=== PATIENT | female | born 1955 | race Caucasian/White ===

== ENCOUNTER → 2016-12-10 | Outpatient (CLI) | payer BC ==
[~2016-12-10] MED LIST: ASPI81TA21 PO; CALCTAB11 PO; CHOL20005 PO; LEVO75TA PO; METF500T5 PO; MULT-506 PO; SERT-234 PO; SIMV40TA2 PO
--- NOTE | 2016-12-10 14:34 | MAMMOGRAPHY REPORT ---
BILATERAL DIGITAL SCREENING MAMMOGRAM WITH CAD: 12/10/2016 CLINICAL HISTORY: Routine screening. Patient has no complaints. TECHNIQUE: Current study was also evaluated with a Computer Aided Detection (CAD) system. Bilatera l CC and MLO views were obtained. COMPARISON: Comparison is made to exams dated: 12/07/2015 mammogram, 12/06/2014 mammogram, 12/01/2012 mammogram, 12/01/2011 mammogram, 11/27/2010 mammogram, and 02/19/2010 mammogram - [facility]. BREAST COMPOSITION: The tissue of both breasts is extremely dense, which lowers the sensitivity of mammography. FINDINGS: No suspicious masses, calcifications, or areas of architectural distortion are noted in e ither breast. There has been no significant interval change compared to prior exams. Scattered bilat eral benign-appearing calcifications are not significantly changed. IMPRESSION: ACR BI-RADS CATEGORY 2: BENIGN There is no mammographic evidence of malignancy. A 1 year screening mammogram is recommended. The p atient will receive written notification of the results. Approximately 10% of breast cancers are not detected with mammography. A negative mammographic repor t should not delay biopsy if a clinically suggestive mass is present. Rica Villarreal M.D. /:12/10/2016 08:51:07 Supervisor Cartography: Orin Candelaria, [facility] letter sent: Normal 1/2 BI-RADS Code: ACR BI-RADS Category 2: Benign
== END | disposition home or self-care (01) ==
LOC: C.MAMM 08:28
PROVIDERS: ATTEND Obstetrics & Gynecology
DX: Z12.31 Encounter for screening mammogram for malignant neoplasm of breast (principal)

== ENCOUNTER → 2016-12-12 | Outpatient (CLI) | payer BC ==
[2016-12-12 13:48] LABS: ESTIMATED AVERAGE GLUCOSE 160 mg/dl; HA1C FLAG Normal (Normal)
[2016-12-12 13:54] LABS: ALT/SGPT 70 U/L (12-78); AST/SGOT 59 U/L (15-37); BLOOD UREA NITROGEN 18 mg/dl (7-18); BUN/CREATININE RATIO 18.6 (10-20); CARBON DIOXIDE 29 mmol/L (21-32); CHLORIDE 103 mmol/L (98-107); CHOLESTEROL 103 mg/dl (0-200); CREATININE 0.94 mg/dl (0.60-1.20); GLUCOSE 130 mg/dl (70-99); SODIUM 140 mmol/L (136-145)
[2016-12-12 14:00] LABS: CALCIUM 9.8 mg/dl (8.5-10.1)
[2016-12-12 14:04] LABS: ALB/GLOB RATIO 1.1 (0.9-2); ALKALINE PHOSPHATASE 89 U/L (45-117); CHOLESTEROL/HDL RATIO 2.4; HDL CHOLESTEROL 43 mg/dl; LDL CHOLESTEROL CALCULATED 39 mg/dl; TRIGLYCERIDES 107 mg/dl (0-150); VERY LOW DENSITY LIPOPROT CALC 21 mg/dl
== END | disposition home or self-care (01) ==
LOC: C.LAB1850 12:28
PROVIDERS: ATTEND Family Medicine
DX: Z11.59 Encounter for screening for other viral diseases (principal); E03.9 Hypothyroidism, unspecified; E11.9 Type 2 diabetes mellitus without complications; E78.5 Hyperlipidemia, unspecified

== ENCOUNTER → 2016-12-22 | Outpatient (CLI) | payer BC ==
[~2016-12-22] VITALS: Ht 175.3 cm; Wt 94.9 kg
[2016-12-22 13:45] VITALS: BP 119/74; PULSE 76; Ht 175.3 cm; Wt 94.9 kg
== END | disposition home or self-care (01) ==
LOC: C.NEUR 13:28
PROVIDERS: ATTEND Physician Assistant
DX: G47.30 Sleep apnea, unspecified (principal)

== ENCOUNTER → 2017-09-10 | Outpatient (CLI) | payer OTHER ==
[~2017-09-10] VITALS: Ht 175.3 cm; Wt 93.7 kg
[2017-09-10 15:49] VITALS: BP 121/61; PULSE 67; Ht 175.3 cm; Wt 93.7 kg
== END | disposition home or self-care (01) ==
LOC: C.NEUR 14:00
PROVIDERS: ATTEND Physician Assistant
DX: G47.30 Sleep apnea, unspecified (principal)

== ENCOUNTER → 2017-09-29 | Outpatient (CLI) | payer OTHER | END | disposition home or self-care (01) | LOC: C.LABSPEC 17:38 | PROVIDERS: ATTEND Family Medicine | DX: R80.9 Proteinuria, unspecified (principal) ==

== ENCOUNTER 2017-10-05 18:45 | Emergency (ER) | payer OTHER ==
[~2017-10-05] VITALS: Ht 175.3 cm; Wt 94.4 kg
[2017-10-05 19:08] VITALS: Ht 175.3 cm; Wt 94.4 kg
--- NOTE | 2017-10-05 22:10 | EMERGENCY ROOM VISIT NOTE ---
History First contact with patient: 21:46 Chief Complaint: FLANK PAIN Stated Complaint: LOWER BACK PAIN, POSSIBLE KIDNEY STONE History of Present Illness The patient is a 62 year old female who presents to the Emergency Room with complaints of right flank pain that has been ongoing since Thursday in the setting of being diagnosed and treated for a UTI earlier last week. Patient reports that she had oxylate crystals in her urine and was told to go to the emergency department should she develop any back or flank pain. She called her doctor's office today to inform them of her ongoing back pain and was again told to go to the emergency Department to rule out a kidney stone. She denies any fevers chills, nausea, vomiting, blood in urine, headaches, dizziness, chest pain shortness of breath. Source of History: patient Position: other (right flank) Symptom Intensity: minimal Quality: ache Timing: constant Modifying Factors (Worsening): movement Modifying Factors (Relieving): other (none) Associated Symptoms: + urinary symptoms Review of Systems See HPI for pertinent positives and negatives. A total of ten systems were reviewed and were otherwise negative. Past Medical/Surgical History Hysterectomy Social History Smoking Status: Never Smoker Current/Historical Medications Scheduled Aspirin Enteric Coated (Ecotrin Or Generic), 81 MG PO DAILY Calcium Carbonate-Cholecalcife (Os-Gunner 500+D), 2 TAB PO DAILY Cholecalciferol (Vitamin D3), 2,000 INTER.UNIT PO BID Levothyroxine Sodium (Synthroid), 75 MCG PO DAILY Metformin Hcl Er (Glucophage Er), 1,000 MG PO BID Multivitamin (Multivitamin), 1 TAB PO DAILY Sertraline (Zoloft), 200 MG PO DAILY Simvastatin (Zocor), 40 MG PO QPM Physical Exam Vital Signs Date Time Temp Pulse Resp B/P (MAP) Pulse Ox O2 Delivery O2 Flow Rate FiO2 10/06/17 01:10 36.4 63 20 126/66 93 10/06/17 00:02 68 20 131/72 94 Room Air 10/05/17 19:08 36.4 83 18 129/76 95 Room Air Physical Exam GENERAL: Awake, alert, well-appearing, in no distress HENT: Normocephalic, atraumatic. Oropharynx unremarkable. EYES: Normal conjunctiva. Sclera non-icteric. NECK: Supple. No nuchal rigidity. FROM. No JVD. RESPIRATORY: Clear to auscultation. CARDIAC: Regular rate, normal rhythm. Extremities warm and well perfused. Pulses equal. ABDOMEN: Soft, non-distended. No tenderness to palpation. No rebound or guarding. No masses. RECTAL: Deferred. MUSCULOSKELETAL: Chest examination reveals no tenderness. The back is symmetrical on inspection without obvious abnormality. Minimal right CVA discomfort. LOWER EXTREMITIES: Calves are equal size bilaterally and non-tender. No edema. No discoloration. NEURO: Normal sensorium. No sensory or motor deficits noted. SKIN: No rash or jaundice noted. Medical Decision & Procedures ER Provider Diagnostic Interpretation: Preliminary Findings Only See Final Report For Complete Findings CT ABDOMEN & PELVIS With Contrast: No urolithiasis or hydronephrosis. Hepatomegaly with marked parenchymal steatosis. Narinder Unremarkable appendix. No SBO. Gastric antral wall thickening, lack of distention versus mild gastritis. No free air. Hysterectomy. Tiny fatty umbilical hernia. Radiologist: Issa Snyder M.D. Laboratory Results 10/05/17 22:20 Red Blood Count 4.19, Mean Corpuscular Volume 91.6, Mean Corpuscular Hemoglobin 31.0, Mean Corpuscular Hemoglobin Concent 33.9, Mean Platelet Volume 10.3, Neutrophils (%) (Auto) 60.4, Lymphocytes (%) (Auto) 31.3, Monocytes (%) (Auto) 6.7, Eosinophils (%) (Auto) 0.7, Basophils (%) (Auto) 0.5, Neutrophils # (Auto) 5.51, Lymphocytes # (Auto) 2.86, Monocytes # (Auto) 0.61, Eosinophils # (Auto) 0.06, Basophils # (Auto) 0.05 10/05/17 23:58 Test 10/05/17 20:25 10/05/17 22:20 10/05/17 22:25 10/05/17 22:31 Urine Color YELLOW Urine Appearance CLOUDY (CLEAR) Urine pH 5.0 (4.5-7.5) Urine Specific [place] 1.017 (1.000-1.030) Urine Protein NEG (NEG) Urine Glucose (UA) NEG (NEG) Urine Ketones NEG (NEG) Urine Occult Blood NEG (NEG) Urine Nitrite NEG (NEG) Urine Bilirubin NEG (NEG) Urine Urobilinogen NEG (NEG) Urine Leukocyte Esterase LARGE (NEG) Urine WBC (Auto) >30 /hpf (0-5) Urine RBC (Auto) 0-4 /hpf (0-4) Urine Hyaline Casts (Auto) 1-5 /lpf (0-5) Urine Epithelial Cells (Auto) >30 /lpf (0-5) Urine Bacteria (Auto) NEG (NEG) Urine Renal Epithelial Cells 10-20 /lpf (0-5) White Blood Count 9.13 K/uL (4.8-10.8) Red Blood Count 4.19 M/uL (4.2-5.4) Hemoglobin 13.0 g/dL (12.0-16.0) Hematocrit 38.4 % (37-47) Mean Corpuscular Volume 91.6 fL (80-100) Mean Corpuscular Hemoglobin 31.0 pg (25-34) Mean Corpuscular Hemoglobin Concent 33.9 g/dl (32-36) Platelet Count 235 K/uL (130-400) Mean Platelet Volume 10.3 fL (7.4-10.4) Neutrophils (%) (Auto) 60.4 % Lymphocytes (%) (Auto) 31.3 % Monocytes (%) (Auto) 6.7 % Eosinophils (%) (Auto) 0.7 % Basophils (%) (Auto) 0.5 % Neutrophils # (Auto) 5.51 K/uL (1.4-6.5) Lymphocytes # (Auto) 2.86 K/uL (1.2-3.4) Monocytes # (Auto) 0.61 K/uL (0.11-0.59) Eosinophils # (Auto) 0.06 K/uL (0-0.5) Basophils # (Auto) 0.05 K/uL (0-0.2) RDW Standard Deviation 43.8 fL (36.4-46.3) RDW Coefficient of Variation 13.2 % (11.5-14.5) Immature Granulocyte % (Auto) 0.4 % Immature Granulocyte # (Auto) 0.04 K/uL (0.00-0.02) Bedside Blood Gas pH (LAB) 7.42 (7.35-7.45) Bedside Blood Gas pCO2 (LAB) 46 mmHg (35-46) Bedside Blood Gas pO2 (LAB) 44 mmHg (80-95) Bedside Blood Gas HCO3 (LAB) 30 meq/L (19-24) Bedside Blood Gas Total CO2 31 mEq/l (24-31) Bedside Blood Gas Base Excess (LAB) 5.0 meq/L (-9-1.8) Bedside Blood Gas O2 Saturation 80.0 % (90-95) Bedside Hemoglobin 13.3 g/dl (12.0-16.0) Bedside Hematocrit 39 % (37-47) Bedside Sodium 139 mEq/L (135-144) Bedside Potassium 4.9 mEq/L (3.3-5.0) Bedside Chloride 100 mEq/L (101-112) Bedside Total CO2 30 mEq/l (24-31) Bedside Blood Urea Nitrogen 26 mg/dl (7-18) Bedside Creatinine 1.1 mg/dl (0.6-1.3) Bedside Glucose (other) 109 mg/dl (70-99) Bedside Ionized Calcium (Zonia) 1.17 mmol/l (1.12-1.32) Test 10/05/17 23:58 Anion Gap 10.0 mmol/L (3-11) Est Creatinine Clear Calc Drug Dose 65.8 ml/min Estimated GFR () 64.0 Estimated GFR (Non- 55.2 BUN/Creatinine Ratio 17.2 (10-20) Calcium Level 8.6 mg/dl (8.5-10.1) Total Bilirubin 0.4 mg/dl (0.2-1) Direct Bilirubin 0.1 mg/dl (0-0.2) Aspartate Amino Transf (AST/SGOT) 36 U/L (15-37) Alanine Aminotransferase (ALT/SGPT) 43 U/L (12-78) Alkaline Phosphatase 72 U/L (45-117) Total Protein 6.4 gm/dl (6.4-8.2) Albumin 3.1 gm/dl (3.4-5.0) Lipase 167 U/L (73-393) ED Course 2145: I evaluated the patient at the bedside. Medical Decision I reviewed the patient's past medical history, medications, and the nursing notes as described above. Differential diagnosis includes: UTI, pyelonephritis, renal stone, diverticulitis, appendicitis, colitis, biliary etiology, among others. The patient is a 62-year-old woman who presents emergency Department with right flank pain that his been ongoing since Thursday in the setting of having a UTI diagnosed early in the week currently completing antibiotic therapy per hpi. Arrival the patient is no acute distress, relatively well-appearing, afebrile stable vital signs. She has minimal right CVA discomfort but no discrete tenderness. Abdomen is soft with no peritoneal signs. Labs unremarkable including wbc wnl. CT STATRAD read negative for hydro or ureteral stone. No other acute findings. UA dirty and patient reports resolution of her dysuria. Patient still with 1 more day of 7 day course of Cipro 500 BID that would cover for pyelonephritis. UA with renal epithileal cells likely related to patient's recent cystitis/pyelo. Review of outpatient urine cx demonstrates e-coli > 100K sensitive to Cipro. Thus, no need for extension of abx at this time. Findings and plan for follow-up reviewed with patient. Patient agreeable and d/c'd per discharge instructions. Impression Primary Impression: Right flank pain Departure Information Dispostion Home / Self-Care Referrals Hannah Sal MD (PCP) Patient Instructions ED Flank Pain Uncertain Cause, ED Muscle Aching, My [facility] Additional Instructions Please follow up with your primary care physician in the next 1-3 days for re- evaluation. Your symptoms are most likely due to a muscle strain or possibly residual from your recent urinary tract infection. Review of your culture results shows that your were treated with appropriate antimicrobial coverage with Ciprofloxacin. If your urine culture today grows a different bacteria not covered by your current antibiotic you will receive a phone call. Otherwise, your exam, lab results, and CT scan did not show signs of an emergent condition at this time. Acetaminophen or ibuprofen for pain and fevers as needed. Continue your Ciprofloxacin as directed. Drink plenty of fluids to ensure hydration. Return to the emergency department for worsening symptoms as described in the accompanying instructions.
[2017-10-05] MEDS ORDERED: OPTIRAY 320 IV PRN (22:15)
[2017-10-05 22:38] LABS: ISTAT POTASSIUM 4.8 mEq/L (3.3-5.0); ISTAT SODIUM 138 mEq/L (135-144)
[2017-10-05 22:39] LABS: BASO % 0.5 %; BASO ABS # 0.05 K/uL (0-0.2); EOS % 0.7 %; EOS ABS # 0.06 K/uL (0-0.5); HEMATOCRIT 38.4 % (37-47); IG# 0.04 K/uL (0.00-0.02); LYMPH % 31.3 %; LYMPH ABS # 2.86 K/uL (1.2-3.4); MEAN CELL VOLUME 91.6 fL (80-100); MEAN CORPUSCULAR HGB CONC 33.9 g/dl (32-36); MEAN PLATELET VOLUME 10.3 fL (7.4-10.4); MONO % 6.7 %; MONO ABS # 0.61 K/uL (0.11-0.59); NEUT % 60.4 %; NEUT ABS # 5.51 K/uL (1.4-6.5); PLATELET COUNT 235 K/uL (130-400); RED CELL DISTRIBUTION WIDTH CV 13.2 % (11.5-14.5); RED CELL DISTRIBUTION WIDTH SD 43.8 fL (36.4-46.3); WHITE BLOOD COUNT 9.13 K/uL (4.8-10.8)
[2017-10-05 22:58] LABS: ISTAT CREATININE 1.1 mg/dl (0.6-1.3); ISTAT IONIZED CALCIUM 1.17 mmol/l (1.12-1.32); ISTAT POTASSIUM 4.9 mEq/L (3.3-5.0)
[2017-10-06 00:28] LABS: ALBUMIN 3.1 gm/dl (3.4-5.0); CALCIUM 8.6 mg/dl (8.5-10.1); CREATININE 1.07 mg/dl (0.60-1.20); POTASSIUM 3.9 mmol/L (3.5-5.1)
[2017-10-06 00:31] LABS: TOTAL PROTEIN 6.4 gm/dl (6.4-8.2)
[2017-10-06 01:10] VITALS: BP 126/66; PULSE 63; TEMP 36.4; O2SAT 93
--- NOTE | 2017-10-06 11:20 | DIAGNOSTIC IMAGING REPORT ---
CT ABD/PELVIS IV CONTRAST ONLY CLINICAL HISTORY: right flank pain LOW BACK PAIN COMPARISON STUDY: None. TECHNIQUE: Following the IV administration of 92 mL of Optiray-320, CT scan of the abdomen and pelvis was performed from the lung bases to the proximal femurs. Images are reviewed in the axial, sagittal, and coronal planes. IV contrast was administered without complication. A dose lowering technique was utilized adhering to the principles of ALARA. CT DOSE: 1042.27 mGy.cm FINDINGS: Lower chest: The heart is normal in size and configuration, without pericardial effusion. The lung bases and pleural spaces are clear. Liver: There is hepatic steatosis. No focal hepatic masses are visualized. Gallbladder: Unremarkable. Spleen: The spleen is mildly enlarged measuring 13.5 cm Pancreas: Unremarkable. Adrenal glands: Unremarkable. Kidneys: There is symmetric renal cortical enhancement. The kidneys are normal in size without hydronephrosis. No calculi are visualized. Bowel: There are no transition zones indicate bowel obstruction. There is no evidence of acute diverticulitis. There is no evidence of acute appendicitis. Peritoneum: There is no intraperitoneal free air or abdominal ascites. Vasculature: The abdominal aorta is normal in course and caliber. Adenopathy: None. Pelvic viscera: The uterus is surgically absent. Skeletal structures: No destructive osseous lesions are seen. IMPRESSION: 1. Hepatic steatosis. Mild hepatomegaly 2. No evidence of bowel obstruction. No evidence of free air 3. No evidence of acute appendicitis. No evidence of acute diverticulitis. Electronically signed by: Ryan Crawley M.D. 10/06/2017 6:57 AM Dictated Date/Time: 10/06/2017 6:54 AM
== END 2017-10-06 01:11 | disposition home or self-care (01) ==
LOC: C.EDB 18:47
DX: R10.84 Generalized abdominal pain (principal); Z79.82 Long term (current) use of aspirin

== ENCOUNTER → 2017-12-07 | Outpatient (CLI) | payer OTHER ==
[~2017-12-07] MED LIST changes: +ASPI-319 PO; -ASPI81TA21 PO
== END ==
LOC: C.LABSPEC 10:36
PROVIDERS: ATTEND Family Medicine
DX: R35.0 Frequency of micturition (principal)

== ENCOUNTER 2019-10-28 23:45 | Observation (INO) ==
[2019-10-29] MEDS ORDERED: ONDANSETRON INJ 2 MG/ML 2 ML VIAL IV STA (00:03)
[2019-10-29 00:25] LABS: Basophils # (auto) 0.03 K/uL (0-0.2); Basophils % (auto) 0.3 %; Eosinophils # (auto) 0.16 K/uL (0-0.5); Eosinophils % (auto) 1.8 %; Hematocrit (blood only) 40.2 % (37-47); Hemoglobin 13.1 g/dL (12.0-16.0); Immature Granulocytes # (auto) 0.03 K/uL (0.00-0.02); Immature Granulocytes % (auto) 0.3 %; Lymphocytes # (auto) 2.52 K/uL (1.2-3.4); Lymphocytes % (auto) 27.8 %; Mean Corpuscular Hemoglobin 30.9 pg (25-34); Mean Corpuscular Hgb Conc 32.6 g/dL (32-36); Mean Corpuscular Volume 94.8 fL (80-100); Mean Platelet Volume 10.1 fL (7.4-10.4); Monocytes # (auto) 0.49 K/uL (0.11-0.59); Monocytes % (auto) 5.4 %; Neutrophils # (auto) 5.85 K/uL (1.4-6.5); Neutrophils % (auto) 64.4 %; Platelet Count 256 K/uL (130-400); RDW Coefficient of Variation 13.3 % (11.5-14.5); RDW Standard Deviation 45.6 fL (36.4-46.3); Red Blood Count 4.24 M/uL (4.2-5.4); White Blood Count 9.08 K/uL (4.8-10.8)
[2019-10-29 00:26] LABS: Appearance Urine Turbid (Clear); Bacteria Urine Automated Negative (Negative); Bilirubin Urine Negative (Negative); Blood Urine Negative (Negative); Color Urine Yellow; Glucose Urine UA Negative (Negative); Ketones Urine Negative (Negative); Leukocyte Esterase Urine Trace (Negative); Nitrite Urine Negative (Negative); Protein Urine Negative (Negative); RBC Urine Automated 0-4 /hpf (0-4); Urobilinogen Urine Negative (Negative); pH Urine 8.5 (4.5-7.5)
[2019-10-29 00:43] LABS: Alanine Aminotransferase 94 U/L (12-78); Aspartate Aminotransferase 231 U/L (15-37); BUN Creatinine Ratio 21.1 (10-20); Blood Urea Nitrogen 22 mg/dl (7-18); Calcium 9.5 mg/dl (8.5-10.1); Carbon Dioxide 31 mmol/L (21-32); Chloride 103 mmol/L (98-107); Creatinine Clr Calc Pharmacy 64.7 ml/min; Est GFR (African American) 64.5; Est GFR (Non-African American) 55.7; Glucose 129 mg/dl (70-99); Lipase 188 U/L (73-393); Sodium 140 mmol/L (136-145)
[2019-10-29 00:48] LABS: Albumin Globulin Ratio 1.1 (0.9-2); Alkaline Phosphatase 143 U/L (45-117); Bilirubin,Total 0.5 mg/dl (0.2-1); Globulin 3.8 gm/dl (2.5-4.0); Total Protein 7.8 gm/dl (6.4-8.2); Troponin I < 0.015 ng/ml (0-0.045)
[2019-10-29] MEDS ORDERED: SODIUM CHLORIDE 0.9% 1000ML 1,000 ML IV ONE (01:01)
--- NOTE | 2019-10-29 01:41 | Emergency Department Note ---
ED Visit Note NAME: ESTER CADE AGE: 64 SEX: F ARRIVES VIA: Walk-In INFORMANT: [Patient] ED PROVIDER(S): [Monae Fiedl DO] CHIEF COMPLAINT: [Right upper quadrant abdominal pain] IMPRESSION: [Cholelithiasis Right upper quadrant abdominal pain] PLAN: Disposition: [Admitted to the [facility]ist service with consultation to surgery] Condition: [Good] MEDICAL DECISION MAKING: This is a 64-year-old female patient who presents to the emergency department complaining of right upper quadrant abdominal pain. Patient has a normal- appearing EKG and negative troponin. She does have an elevated alkaline phosphatase and AST/ALT. She did have pizza for dinner tonight. She does have a sister with history of cholecystitis. The patient states that while undergoing the right upper quadrant ultrasound, she had severe pain during the testing. Patient has a dilated common bile duct with sludge and stones within the gallbladder. I discussed the case with Dr. Yu and he recommended admission to the hospitalist service and he will be consulted. Triage Nursing notes reviewed and agree them. [Additional history obtained from] none Differential diagnosis: Pancreatitis, cholecystitis, ulcerative disease, cardiac ischemia ER treatment provided: IV Zofran, IV normal saline, IV Dilaudid, IV Levaquin Diagnostics interpreted by me: ECG: Normal sinus rhythm at a rate of 66; no cardiac ischemia no ST segment elevation and no ectopy Cardiac Monitoring: Normal sinus rhythm at a rate of 70 Laboratory studies: [See below] Imaging studies: Chest x-ray: No acute pulmonary infiltrates or opacities as interpreted by me Consultation(s): Dr. Yu-surgery Dr. Harmon[facility] service HPI: This is a 64-year-old female patient who presents to the emergency department with a sudden onset of right upper quadrant abdominal pain at 10 PM this evening. The patient had eaten pizza and salad for dinner. There was some associated nausea. The patient states that the pain did seem to subside on its own for a short period of time but then came back as a pressure and radiated to the epigastrium. ROS: See above HPI for pertinent positives & negatives. A total of [10] systems reviewed and were otherwise negative. PAST MEDICAL HISTORY:[See Below] PAST SURGICAL HISTORY:[See Below] FAMILY HISTORY:[See Below] SOCIAL HISTORY:[See Below] HOME MEDICATIONS:[See Below] ALLERGIES:[See Below] VITALS:[See Below] PHYSICAL EXAMINATION: HEENT: Head - normocephalic and atraumatic Pupils are equal, round, and reactive to light. Extraocular eye muscles are intact, and sclera are anicteric. Nose - moist nasal mucosa without discharge. Mouth - moist buccal mucosa. Oropharynx is nonerythematous and there is no tonsillar exudate or edema noted. Neck: Supple; no cervical lymphadenopathy or nuchal rigidity Heart: Regular rate and rhythm. There is a normal S1 and S2 with no murmurs, clicks, or gallops appreciated. Lungs: Clear to auscultation bilaterally with no wheezes, rales, or rhonchi. Abdomen: Soft, moderate tenderness to palpation in the right upper quadrant nondistended, with good bowel sounds. There are no palpable pulsatile masses or hepatosplenomegaly. There is no guarding, rigidity, or rebound noted. Extremities: No evidence of cyanosis, clubbing, or edema. There are easily palp able peripheral pulses. Skin: warm and dry with good turgor and no rashes. ED COURSE: 1205: The patient was evaluated in room C10. A complete history and physical was performed. An IV lock was initiated and labs drawn as above. An order was placed for continuous cardiac monitoring. The patient remained in a normal sinus rhythm at a rate of 70. Patient declined wanting anything for pain initially. She was given 4 mg of IV Zofran. The patient will go for ultrasound of the gallbladder 0140: I did update the patient's on the laboratory studies while she was in ultrasound I evaluated the patient when she returned from ultrasound and she stated that the actual ultrasound itself was quite painful. She was willing to take some pain medication at that time and was given 0.5 mg of IV Dilaudid. I discussed the case with Dr. Yu and reviewed the results of the ultrasound. He recommended that I talk with the hospitalist service and that they could admit the patient to the hospital and he would be consulted. I discussed the case with Dr. Harmon and she is willing to evaluate the patient for further management. .
[2019-10-29] MEDS ORDERED: HYDROmorphone INJ 0.5 MG/0.5 ML SYR IV STA (03:33)
[2019-10-29] MEDS ORDERED: LEVOFLOXACIN/D5W 750 MG/150 ML BAG IV STA (04:15)
--- NOTE | 2019-10-29 04:41 | History & Physical Report ---
Date of Service October 29, 2019 Assessment & Plan (1) Cholelithiases: 64 yo F with PMH GERD, Depression, HLD, Hypothyroidism, DM2 presents to [facility] with complaints of RUQ abd pain found to have elevated LFTs and GB stones and sludge on U/S. Acute RUQ Pain -RUQ U/S: Liver is echogenic and mildly enlarged suggesting diffuse fatty infiltration. There is GB stones and sludge. There is no GB wall thickening. Common duct is 7mm which is distended. There is no intraductal filling defect. Impression: positive for cholelithiasis -MRCP pending - Defer GI consult for now -Consult Sx. ER spoke with Dr. Yu over phone and stated ok to wait until morning for sx Consult. -Cont trend LFTs -Pain control with Dilaudid 0.5 mg q4h -Avoid ASA and NSAIDs for the short term -PRN Zofran for nausea -IVF NSS at 100 -Will dc IV Levaquin started in ED for IV Zosyn (PCN allergy of hives noted) Depression/Anxiety -cont Buproprion 150, Buspirone 10 , sertraline 50 HLD -hold simvastatin 40 for now Hypothyroidism -cont levothyroxine 75 mcg -TSH pending DM2 -hold home metformin. ISS -pharmacy glycemic consult appreciated FEN/GI: NPO. NSS at 100 DVT Prophylaxis: SCDs Full Code Dispo: Med Surg History of Present Illness Chief Complaint: abd pain Primary Care Provider: Hannah Sal MD 64 yo F with PMH GERD, Depression, HLD, Hypothyroidism, DM2 presents to [facility] with complaints of RUQ abd pain. Pain started suddenly around 10 PM last night. Pt had pizza and a salad for dinner around 630PM. Pain described as a constant sharp pain, 10/10. Radiates across into epigastric region. No known alleviating or exacerbating factors. No previous such occurrence like this before. Pain initially lasted for around 40 min, then subsided, then came back around 1 hr later even worse. Associated nausea, but otherwise denies vomiting, diarrhea, sick contacts, ingestion of suspicious foods, fever, chills, CP, SOB, urinary sxs. Pt with no other acute concerns or complaints. Labs: AST 231, ALT 94, Alk Phos 143. T.bili normal at 0.5 RUQ U/S (STATRad): Liver is echogenic and mildly enlarged suggesting diffuse fatty infiltration. There is GB stones and sludge. There is no GB wall thickening. Common duct is 7mm which is distended. There is no intraductal filling defect. Impression: positive for cholelithiasis. Official read pending. ER Course: Dilaudid 0.5mg IV, IV Levaquin, IV Zofran, NSS Family Hx: Mother- Dementia, osteoporosis Social: Denies Tobacco/Drug Use. Very Rare Alcohol use/year Surgical Hx: bunionectomy, hysterectomy, right knee arthroscopy Allergies Allergy/AdvReac Type Severity Reaction Status Date / Time amoxicillin [From Amoxil] Allergy Severe Hives Unverified 10/29/19 00:52 Bactrim Allergy Mild ITCHING/HIV Verified 08/15/14 06:57 ES sulfamethoxazole Allergy Mild ITCHING/HIV Verified 10/29/19 00:52 ES trimethoprim Allergy Mild ITCHING/HIV Verified 10/29/19 00:52 ES guaifenesin [From Entex LQ] Allergy Unknown Unknown Verified 10/29/19 00:52 Penicillins Allergy Unknown Unknown Verified 10/29/19 00:52 phenylephrine [From Entex LQ] Allergy Unknown Unknown Verified 10/29/19 00:52 Sulfa (Sulfonamide Allergy Unknown Unknown Verified 10/29/19 00:52 Antibiotics) Home Medications Home Medications Medication Instructions Recorded Confirmed Type levothyroxine 75 mcg tablet 75 mcg PO DAILY #90 tab 01/20/19 10/29/19 Rx simvastatin 40 mg tablet 40 mg PO QPM #90 tab 06/29/19 10/29/19 Rx aspirin 81 mg tablet 81 mg PO DAILY #30 tab 07/23/19 10/29/19 History buspirone 10 mg tablet 10 mg PO BID tab 07/23/19 10/29/19 History calcium carbonate-vitamin D3 600 2 cap PO BID cap 07/23/19 10/29/19 History mg calcium-200 unit capsule cholecalciferol (vitamin D3) 50 1,000 units PO BID tab 07/23/19 10/29/19 History mcg (2,000 unit) tablet metformin 500 mg tablet,extended 1,000 mg PO BID #360 tab 09/26/19 10/29/19 Rx release 24 hr bupropion HCl 150 mg PO QAM 10/29/19 10/29/19 History sertraline 50 mg PO DAILY 10/29/19 10/29/19 History Past Med/Surg History Social History Preferred Language: Welsh Communication Ability: Effective Visual Impairment: No Limitations Hearing Ability: Normal Line Service Attendant Required: No Beliefs That Will Affect Care: None marital status: Current Living Situation: Spouse current occupational status: retired Other Information That Helps Us Care for You: No Feels Safe at Home: Yes Safety Concerns: Feels Safe At This Time Smoking Status: Never smoker Hx Alcohol Use: No Hx Substance Use: No Childhood Exposure to Second-Hand Smoke: Yes Dental Care, Regularly: Yes Physical Activity Frequency: Does not Exercise Seatbelt Use: always Sunscreen Use: Yes Review of Systems Review of Systems: All systems reviewed & are unremarkable except as noted in HPI & below Physical Exam Constitutional: WD/WN, vitals as above ENMT: external ear and nose normal, oropharynx normal Mouth: + oral mucosal abnormality (dry MM ) Respiratory: normal respiratory effort, lungs clear to auscultation Cardiovascular: RRR, no murmur, no edema Gastrointestinal (Abdomen): Inspection/Auscultation: normal bowel sounds Percussion/Palpation: + abdomen tender (RUQ, Epigastric); no guarding Skin: no rashes, warm and dry Psychiatric: A+Ox3, euthymic affect Results & Data Vital Signs (Past 12 Hours) Vital Signs Temp Pulse Resp BP Pulse Ox 10/29/19 04:00 76 17 122/64 95 10/29/19 03:00 73 17 114/63 92 10/29/19 02:51 70 14 116/57 L 95 10/29/19 01:00 74 19 122/72 95 10/28/19 23:49 36.7 C 73 18 152/88 H 95 Laboratory Results Laboratory Results - last 24 hr 10/29/19 10/29/19 10/29/19 00:00 00:05 00:05 WBC 9.08 RBC 4.24 Hgb 13.1 Hct 40.2 MCV 94.8 MCH 30.9 MCHC 32.6 RDW Std Deviation 45.6 RDW Coeff of Liza 13.3 Plt Count 256 MPV 10.1 Immature Gran % (Auto) 0.3 Neut % (Auto) 64.4 Lymph % (Auto) 27.8 [place] % (Auto) 5.4 Eos % (Auto) 1.8 Baso % (Auto) 0.3 Immature Gran # (Auto) 0.03 H Neut # (Auto) 5.85 Lymph # (Auto) 2.52 [place] # (Auto) 0.49 Eos # (Auto) 0.16 Baso # (Auto) 0.03 Sodium 140 Potassium 4.0 Chloride 103 Carbon Dioxide 31 Anion Gap 6.0 BUN 22 H Creatinine 1.05 Est Cr Clr Drug Dosing 64.7 Est GFR ( Amer) 64.5 Est GFR (Non-Af Amer) 55.7 BUN/Creatinine Ratio 21.1 H Glucose 129 H Calcium 9.5 Total Bilirubin 0.5 AST 231 H ALT 94 H Alkaline Phosphatase 143 H Troponin I < 0.015 Total Protein 7.8 Albumin 4.0 Globulin 3.8 Albumin/Globulin Ratio 1.1 Lipase 188 Urine Color Yellow Urine Appearance Turbid A Urine pH 8.5 H Ur Specific [place] 1.020 Urine Protein Negative Urine Glucose (UA) Negative Urine Ketones Negative Urine Blood Negative Urine Nitrite Negative Urine Bilirubin Negative Urine Urobilinogen Negative Ur Leukocyte Esterase Trace H Urine WBC (Auto) 1-5 Urine RBC (Auto) 0-4 U Hyaline Cast (Auto) 1-5 U Epithel Cells (Auto) 5-10 H Urine Bacteria (Auto) Negative Medications Administered Current Inpatient Medications Levofloxacin/Dextrose (Levaquin/D5w) 750 mg in 150 mls @ 100 mls/hr IV NOW STA Stop: 10/29/19 05:44 Last Admin: 10/29/19 04:26 Dose: 100 mls/hr Documented by: Code Status & VTE Plan Code Status FULL Supervising Physician Co-Signing Physician Notes Patient seen and examined, chart reviewed, case discussed with Dr. Baugh and I agree with his assessment and plan as documented above. Concern for acute cholecystitis. Patient afebrile, HD stable, nontoxic in appearance RUQ tenderness, otherwise unremarkable exam Assessment/Plan: Admit to medical floor Abx/IVF/Pain and nausea control Check LFTs and MRCP Surgery consultation appreciated Remainder of plan as above Resident Activity Tracking Resident Involvement: Resident Care Provided Care Provided: [facility] Medicine
--- NOTE | 2019-10-29 04:59 | XRay Report ---
XR chest 1V portable CLINICAL HISTORY: epigastric pain/ruq pain pain. Nausea. COMPARISON STUDY: No previous studies for comparison. FINDINGS: The bones soft tissues and hemidiaphragms are normal. The cardiomediastinal silhouette is n ormal. The lungs are clear. The pulmonary vasculature is normal. IMPRESSION: Negative chest. ACT 112: Negative or not required by law. The above report was generated using voice recognition software. It may contain grammatical, syntax or spelling errors. Electronically signed by: Omar Gallego M.D. 10/29/2019 4:58 AM
--- NOTE | 2019-10-29 05:12 | Ultrasound Report ---
US gallbladder HISTORY: Pain. Nausea. RUQ pain COMPARISON: None. FINDINGS: Mild fatty replacement of the liver. Several small gallstones and gallbladder sludge. Slight prominen ce of the common bile duct at 7.4 mm. No pericholecystic fluid. Right kidney is negative for hydronephrosis. IMPRESSION: 1. Mild fatty infiltration of liver. 2. Small amount of gallbladder gallstones and sludge. 3. Slight prominence of the common bile duct at 7.4 mm. ACT 112: Negative or not required by law. The above report was generated using voice recognition software. It may contain grammatical, syntax or spelling errors. Electronically signed by: Omar Gallego M.D. 10/29/2019 5:11 AM
[2019-10-29] MEDS ORDERED: CLINDAMYCIN 600 MG/54 ML BAG IV SCH (06:00)
[2019-10-29] MEDS ORDERED: CARBOHYDRATES FOR HYPOGLYCEMIA PO PRN (06:05)
[2019-10-29] MEDS ORDERED: GLUCOSE 10 TABS/TUBE PO PRN (06:05)
[2019-10-29] MEDS ORDERED: GLUCOSE 40% GEL 15 GM TUBE PO PRN (06:05)
[2019-10-29] MEDS ORDERED: PIPERACILL/TAZOBAC CONSULT ACTIVE PRN (06:05)
[2019-10-29] MEDS ORDERED: ONDANSETRON INJ 2 MG/ML 2 ML VIAL IV PRN ×2 (06:05→12:13)
[2019-10-29] MEDS ORDERED: HYDROmorphone INJ 0.5 MG/0.5 ML SYR IV PRN (06:05)
[2019-10-29] MEDS ORDERED: DEXTROSE 50% 50 ML SYRINGE IV PRN (06:05)
[2019-10-29] MEDS ORDERED: GLUCAGON FOR INJ 1 MG VIAL SQ PRN (06:05)
[2019-10-29] MEDS ORDERED: ALUMINUM/MAGNESIUM SUSP 30 ML UDC PO PRN (06:05)
[2019-10-29] MEDS ORDERED: PIPERACILLIN/TAZOBACTAM 3.375 GM in DEXTROSE 5% 100 ML IV ONE (06:30)
[2019-10-29] MEDS ORDERED: PHARMACY GLYCEMIC MGMT CONSULT PRN (06:31)
[2019-10-29] MEDS: SODIUM CHLORIDE 0.9% 1000ML 1,000 ML IV SCH ×2 (06:33→16:01)
[2019-10-29 07:15] LABS: Basophils # (auto) 0.02 K/uL (0-0.2); Basophils % (auto) 0.3 %; Eosinophils # (auto) 0.09 K/uL (0-0.5); Eosinophils % (auto) 1.5 %; Hematocrit (blood only) 34.1 % (37-47); Hemoglobin 10.9 g/dL (12.0-16.0); Immature Granulocytes # (auto) 0.01 K/uL (0.00-0.02); Immature Granulocytes % (auto) 0.2 %; Lymphocytes # (auto) 1.79 K/uL (1.2-3.4); Lymphocytes % (auto) 30.7 %; Mean Corpuscular Hemoglobin 30.6 pg (25-34); Mean Corpuscular Volume 95.8 fL (80-100); Mean Platelet Volume 9.9 fL (7.4-10.4); Monocytes # (auto) 0.42 K/uL (0.11-0.59); Monocytes % (auto) 7.2 %; Neutrophils # (auto) 3.51 K/uL (1.4-6.5); Neutrophils % (auto) 60.1 %; Platelet Count 187 K/uL (130-400); RDW Coefficient of Variation 13.4 % (11.5-14.5); RDW Standard Deviation 46.6 fL (36.4-46.3); Red Blood Count 3.56 M/uL (4.2-5.4); White Blood Count 5.84 K/uL (4.8-10.8)
[2019-10-29 07:44] LABS: BUN Creatinine Ratio 22.7 (10-20); Calcium 8.2 mg/dl (8.5-10.1); Creatinine Clr Calc Pharmacy 74.3 ml/min; Est GFR (African American) 77.8; Est GFR (Non-African American) 67.1; Potassium 4.2 mmol/L (3.5-5.1)
[2019-10-29 07:58] LABS: Bilirubin,Total 0.9 mg/dl (0.2-1); Thyroid Stimulating Hormone 4.56 uIu/ml (0.300-4.500)
[2019-10-29] MEDS ORDERED: ACETAMINOPHEN 1,000 MG/100 ML VIAL IV ONE (08:30)
[2019-10-29] MEDS: INSULIN ASPART 100 UNITS/ML 3 ML PEN SC SCH ×4 (08:42→20:39)
[2019-10-29] MEDS ORDERED: INSULIN GLARGINE SOLOSTAR 100 UNITS/ML 3 ML PEN SC SCH (09:00)
--- NOTE | 2019-10-29 10:17 | Pharmacy Report ---
Glycemic Control Consultation - Date of Service October 29, 2019 - Scope Scope: Glycemic Pharmacist consulted for glycemic control and to write orders per [facility] inpatient glycemic control protocol. - Objective Weight: 89.5 kg Accuchecks BSG (last 24hrs): 10/29/19 10/29/19 10/29/19 00:05 06:57 08:15 Glucose 129 H 126 H POC Glucose 106 H Laboratory Data (last 24hrs): 10/29/19 10/29/19 00:05 06:57 Potassium 4.0 4.2 Carbon Dioxide 31 27 Anion Gap 6.0 6.0 Creatinine 1.05 0.90 Est Cr Clr Drug Dosing 64.7 74.3 - Recent Pertinent Medications Outpatient Anti-diabetic Regimen: * metformin 1000 mg ER bid * A1c = 6.8 % 07/2019 - ordered another A1c for tomorrow Risk Factors for Insulin Resistance: * Diet: NPO - Assessment & Plan Assessment & Plan: ASSESSMENT: * 64 year old admitted with cholelithiases. PMHx significant for DM2, hld, hypothyroidism - pharmacy consulted for glycemic management * Patient NPO for MRCP today - novolog ordered Q6 hrs * No indication at this time for basal insulin, therefore will hold PLAN FOR INPATIENT GLYCEMIC CONTROL: * Holding outpatient oral diabetes medications * Basal insulin * Lantus- hold * Bolus insulin * NovoLog per scale ACHS or Q6hrs while NPO * Goal Range: Low 100 mg/dL - High 140 mg/dL * Correction Factor: 25 mg/dL/unit * Nutritional / Prandial insulin per carb ratio of 1 unit per 8 grams CHO consumed * Please note that the plan above was derived based on current level of insulin resistance and hospital stress. These recommendations are appropriate for inpatient admission only. Plan of care upon discharge will need to be reassessed to avoid potential outpatient hypo/hyperglycemia. Thank you.
--- NOTE | 2019-10-29 11:36 | Surgery Consultation ---
Date of Consultation October 29, 2019 Assessment & Plan (1) Cholelithiases: pt is a 64 year-old female who was admitted to hospital for acute RUQ pain, IMP: acute cholecystitis, cholelithiasis, Plan, I recommend to do laparoscopic cholecystectomy, possible open or cholangiogram, D/W benefits, risks and alternatives of the surgery, the risks - infection, bleeding, injury CBD, may need ERCP, UT, , pt understood, she and her agree with the surgery, I answered all questions, (2) Acute cholecystitis: History of Present Illness Attending Physician: Argentina Francis MD History of Present Illness Chief Complaint: abd pain Primary Care Provider: Hannah Sal MD 64 yo F with PMH GERD, Depression, HLD, Hypothyroidism, DM2 presents to [facility] with complaints of RUQ abd pain. Pain started suddenly around 10 PM last night. Pt had pizza and a salad for dinner around 630PM. Pain described as a constant sharp pain, 10/10. Radiates across into epigastric region. No known alleviating or exacerbating factors. No previous such occurrence like this before. Pain initially lasted for around 40 min, then subsided, then came back around 1 hr later even worse. Associated nausea, but otherwise denies vomiting, diarrhea, sick contacts, ingestion of suspicious foods, fever, chills, CP, SOB, urinary sxs. Pt with no other acute concerns or complaints. I ( Margoth Yu MD ) reviewed pt's H/P labs, U/S study with pt and her . pt is still have some RUQ pain, Labs: AST 231, ALT 94, Alk Phos 143. T.bili normal at 0.5 RUQ U/S (STATRad): Liver is echogenic and mildly enlarged suggesting diffuse fatty infiltration. There is GB stones and sludge. There is no GB wall thickening. Common duct is 7mm which is distended. There is no intraductal filling defect. Impression: positive for cholelithiasis. Official read pending. ER Course: Dilaudid 0.5mg IV, IV Levaquin, IV Zofran, NSS Family Hx: Mother- Dementia, osteoporosis Social: Denies Tobacco/Drug Use. Very Rare Alcohol use/year Surgical Hx: bunionectomy, hysterectomy, right knee arthroscopy Allergies Allergy/AdvReac Type Severity Reaction Status Date / Time amoxicillin [From Amoxil] Allergy Severe Hives Unverified 10/29/19 00:52 Bactrim Allergy Mild ITCHING/HIV Verified 08/15/14 06:57 ES sulfamethoxazole Allergy Mild ITCHING/HIV Verified 10/29/19 00:52 ES trimethoprim Allergy Mild ITCHING/HIV Verified 10/29/19 00:52 ES guaifenesin [From Entex LQ] Allergy Unknown Unknown Verified 10/29/19 00:52 Penicillins Allergy Unknown Unknown Verified 10/29/19 00:52 phenylephrine [From Entex LQ] Allergy Unknown Unknown Verified 10/29/19 00:52 Sulfa (Sulfonamide Allergy Unknown Unknown Verified 10/29/19 00:52 Antibiotics) Home Medications Home Medications Medication Instructions Recorded Confirmed Type levothyroxine 75 mcg tablet 75 mcg PO DAILY #90 tab 01/20/19 10/29/19 Rx simvastatin 40 mg tablet 40 mg PO QPM #90 tab 06/29/19 10/29/19 Rx aspirin 81 mg tablet 81 mg PO DAILY #30 tab 07/23/19 10/29/19 History buspirone 10 mg tablet 10 mg PO BID tab 07/23/19 10/29/19 History calcium carbonate-vitamin D3 600 2 cap PO BID cap 07/23/19 10/29/19 History mg calcium-200 unit capsule cholecalciferol (vitamin D3) 50 1,000 units PO BID tab 07/23/19 10/29/19 History mcg (2,000 unit) tablet metformin 500 mg tablet,extended 1,000 mg PO BID #360 tab 09/26/19 10/29/19 Rx release 24 hr bupropion HCl 150 mg PO QAM 10/29/19 10/29/19 History sertraline 50 mg PO DAILY 10/29/19 10/29/19 History Past Med/Surg History Social History Preferred Language: Dutch Communication Ability: Effective Visual Impairment: No Limitations Hearing Ability: Normal Business Solutions Architect Required: No Beliefs That Will Affect Care: None marital status: Current Living Situation: Spouse current occupational status: retired Other Information That Helps Us Care for You: No Feels Safe at Home: Yes Safety Concerns: Feels Safe At This Time Smoking Status: Never smoker Hx Alcohol Use: No Hx Substance Use: No Childhood Exposure to Second-Hand Smoke: Yes Dental Care, Regularly: Yes Physical Activity Frequency: Does not Exercise Seatbelt Use: always Sunscreen Use: Yes Allergies Allergy/AdvReac Type Severity Reaction Status Date / Time amoxicillin [From Amoxil] Allergy Severe Hives Unverified 10/29/19 00:52 Bactrim Allergy Mild ITCHING/HIV Verified 08/15/14 06:57 ES sulfamethoxazole Allergy Mild ITCHING/HIV Verified 10/29/19 00:52 ES trimethoprim Allergy Mild ITCHING/HIV Verified 10/29/19 00:52 ES guaifenesin [From Entex LQ] Allergy Unknown Unknown Verified 10/29/19 00:52 Penicillins Allergy Unknown Unknown Verified 10/29/19 00:52 phenylephrine [From Entex LQ] Allergy Unknown Unknown Verified 10/29/19 00:52 Sulfa (Sulfonamide Allergy Unknown Unknown Verified 10/29/19 00:52 Antibiotics) Home Medications Home Medications Medication Instructions Recorded Confirmed Type levothyroxine 75 mcg tablet 75 mcg PO DAILY #90 tab 01/20/19 10/29/19 Rx simvastatin 40 mg tablet 40 mg PO QPM #90 tab 06/29/19 10/29/19 Rx aspirin 81 mg tablet 81 mg PO DAILY #30 tab 07/23/19 10/29/19 History buspirone 10 mg tablet 10 mg PO BID tab 07/23/19 10/29/19 History calcium carbonate-vitamin D3 600 2 cap PO BID cap 07/23/19 10/29/19 History mg calcium-200 unit capsule cholecalciferol (vitamin D3) 50 1,000 units PO BID tab 07/23/19 10/29/19 History mcg (2,000 unit) tablet metformin 500 mg tablet,extended 1,000 mg PO BID #360 tab 09/26/19 10/29/19 Rx release 24 hr bupropion HCl 150 mg PO QAM 10/29/19 10/29/19 History sertraline 50 mg PO DAILY 10/29/19 10/29/19 History Patient History Social History Preferred Language: Dutch Communication Ability: Effective Visual Impairment: No Limitations Hearing Ability: Normal Business Solutions Architect Required: No Beliefs That Will Affect Care: None marital status: Current Living Situation: Spouse current occupational status: retired Other Information That Helps Us Care for You: No Feels Safe at Home: Yes Safety Concerns: Feels Safe At This Time Smoking Status: Never smoker Hx Alcohol Use: No Hx Substance Use: No Childhood Exposure to Second-Hand Smoke: Yes Dental Care, Regularly: Yes Physical Activity Frequency: Does not Exercise Seatbelt Use: always Sunscreen Use: Yes Review of Systems Review of Systems: All systems reviewed & are unremarkable except as noted in HPI & below Constitutional: as per Subjective / HPI Eyes: as per Subjective / HPI Ear, Nose, Mouth, Throat: as per Subjective / HPI Respiratory: as per Subjective / HPI Cardiovascular: as per Subjective / HPI Gastrointestinal: as per Subjective / HPI Genitourinary: as per Subjective / HPI Musculoskeletal: as per Subjective / HPI Integumentary: as per Subjective / HPI Neurologic: as per Subjective / HPI Psychiatric: as per Subjective / HPI Endocrine: DM, hypothyroidism Hematologic / Lymphatic: as per Subjective / HPI Allergy / Immunological: as per Subjective / HPI Physical Exam Constitutional: WD/WN, vitals as above well developed and well nourished Eyes: PERRL, conjunctivae normal, anicteric sclerae ENMT: external ear and nose normal, oropharynx normal Neck: trachea midline, no thyromegaly Respiratory: normal respiratory effort, lungs clear to auscultation normal respiratory effort Cardiovascular: RRR, no murmur, no edema Rate/Rhythm: regular rate and regular rhythm Heart Sounds: normal S1 and normal S2 Gastrointestinal (Abdomen): normal bowel sounds, soft, nontender, no hepatosplenomegaly Percussion/Palpation: + abdomen tender tenderness at RUQ, no rebound pain, no distend, Musculoskeletal: no cyanosis or clubbing, extremities motor strength 5/5 Skin: no rashes, warm and dry Neurologic: patellar DTR's 2+ bilat, sensation intact Psychiatric: Orientation: alert and oriented x 3 Results & Data Vital Signs (Past 12 Hours) Vital Signs Temp Pulse Pulse Resp BP BP Pulse Ox 10/29/19 07:00 36.8 C 71 18 115/64 93 10/29/19 06:07 36.4 C L 16 127/77 95 10/29/19 05:50 70 18 115/66 94 10/29/19 05:00 75 17 131/68 10/29/19 04:00 76 17 122/64 95 10/29/19 03:00 73 17 114/63 92 10/29/19 02:51 70 14 116/57 L 95 10/29/19 01:00 74 19 122/72 95 10/28/19 23:49 36.7 C 73 18 152/88 H 95 Laboratory Results Abnormal lab results 10/29/19 10/29/19 10/29/19 Range/Units 00:00 00:05 00:05 RBC (4.2-5.4) M/uL Hgb (12.0-16.0) g/dL Hct (37-47) % RDW Std Deviation (36.4-46.3) fL Immature Gran # (Auto) 0.03 H (0.00-0.02) K/uL BUN 22 H (7-18) mg/dl BUN/Creatinine Ratio 21.1 H (10-20) Glucose 129 H (70-99) mg/dl POC Glucose (70-99) mg/dl Calcium (8.5-10.1) mg/dl AST 231 H (15-37) U/L ALT 94 H (12-78) U/L Alkaline Phosphatase 143 H (45-117) U/L Total Protein (6.4-8.2) gm/dl Albumin (3.4-5.0) gm/dl TSH (0.300-4.500) uIu/ml Urine Appearance Turbid A (Clear) Urine pH 8.5 H (4.5-7.5) Ur Leukocyte Esterase Trace H (Negative) U Epithel Cells (Auto) 5-10 H (0-5) /lpf 10/29/19 10/29/19 10/29/19 Range/Units 06:57 06:57 08:15 RBC 3.56 L (4.2-5.4) M/uL Hgb 10.9 L (12.0-16.0) g/dL Hct 34.1 L (37-47) % RDW Std Deviation 46.6 H (36.4-46.3) fL Immature Gran # (Auto) (0.00-0.02) K/uL BUN 20 H (7-18) mg/dl BUN/Creatinine Ratio 22.7 H (10-20) Glucose 126 H (70-99) mg/dl POC Glucose 106 H (70-99) mg/dl Calcium 8.2 L (8.5-10.1) mg/dl AST 658 H (15-37) U/L ALT 286 H (12-78) U/L Alkaline Phosphatase 132 H (45-117) U/L Total Protein 6.0 L D (6.4-8.2) gm/dl Albumin 3.0 L (3.4-5.0) gm/dl TSH 4.560 H (0.300-4.500) uIu/ml Urine Appearance (Clear) Urine pH (4.5-7.5) Ur Leukocyte Esterase (Negative) U Epithel Cells (Auto) (0-5) /lpf Diagnostic Findings US gallbladder HISTORY: Pain. Nausea. RUQ pain COMPARISON: None. FINDINGS: Mild fatty replacement of the liver. Several small gallstones and gallbladder sludge. Slight prominence of the common bile duct at 7.4 mm. No pericholecystic fluid. Right kidney is negative for hydronephrosis. IMPRESSION: 1. Mild fatty infiltration of liver. 2. Small amount of gallbladder gallstones and sludge. 3. Slight prominence of the common bile duct at 7.4 mm.
--- NOTE | 2019-10-29 11:40 | History & Physical Bridge Note ---
Date of Service October 29, 2019 History & Physical Bridge Note I have examined the patient, reviewed the History & Physical and in the interval since the performance of the History & Physical I have noted the following changes of clinical significance: no changes noted Supervising Physician Co-Signing Physician Notes Patient seen and examined, chart reviewed, case discussed with Dr. Baugh and I agree with his assessment and plan as documented above. Concern for acute cholecystitis. Patient afebrile, HD stable, nontoxic in appearance RUQ tenderness, otherwise unremarkable exam Assessment/Plan: Admit to medical floor Abx/IVF/Pain and nausea control Check LFTs and MRCP Surgery consultation appreciated Remainder of plan as above
[2019-10-29] MEDS ORDERED: LIDOCAINE HCL 2% 2 ML VIAL/AMP(20MG/ML) INFIL ONE (11:54)
[2019-10-29] MEDS ORDERED: GLYCOPYRROLATE 0.2 MG/ML VIAL ONE (11:55)
[2019-10-29] MEDS ORDERED: fentaNYL citrate 100 MCG/2 ML VIAL ONE (11:55)
[2019-10-29] MEDS ORDERED: NEOSTIGMINE METHYLSULFATE 5 MG/5 ML SYR ONE (11:55)
[2019-10-29] MEDS ORDERED: ONDANSETRON INJ 2 MG/ML 2 ML VIAL ONE (11:55)
[2019-10-29] MEDS ORDERED: PROPOFOL IV EMULSION 10 MG/ML 20 ML VIAL IV ONE (11:55)
--- NOTE | 2019-10-29 12:00 | Electrocardiogram Report ---
Test Reason : Blood Pressure : / mmHG Vent. Rate : 066 BPM Atrial Rate : 066 BPM P-R Int : 140 ms QRS Dur : 088 ms QT Int : 388 ms P-R-T Axes : 041 001 026 degrees QTc Int : 406 ms Normal sinus rhythm Poor R wave progression, consider anterior NM vs. lead placement vs. LVH Abnormal ECG When compared with ECG of 14-AUG-2014 14:38, Loss of volatage in lead V3, may be lead placement related Otherwise no significant change Confirmed by Brad Lares ([id number]) on 10/29/2019 12:00:42 PM Referred By: REFERRED SELF Confirmed By:Brad Lares
--- NOTE | 2019-10-29 12:02 | Anesthesiology Consultation ---
Date of Service October 29, 2019 Assessment & Plan (1) Encounter for pre-operative examination: Chart Review Chart Review: Acceptable Risk for Surgery History Surgery Operation Date: 10/29/19 12:30 Proposed Procedures p Laparoscopic Cholecystectomy - Margoth Yu MD Height/Weight Height: 5 ft 9 in Weight: 89.5 kg Allergies Allergy/AdvReac Type Severity Reaction Status Date / Time amoxicillin [From Amoxil] Allergy Severe Hives Unverified 10/29/19 00:52 Bactrim Allergy Mild ITCHING/HIV Verified 08/15/14 06:57 ES sulfamethoxazole Allergy Mild ITCHING/HIV Verified 10/29/19 00:52 ES trimethoprim Allergy Mild ITCHING/HIV Verified 10/29/19 00:52 ES guaifenesin [From Entex LQ] Allergy Unknown Unknown Verified 10/29/19 00:52 Penicillins Allergy Unknown Unknown Verified 10/29/19 00:52 phenylephrine [From Entex LQ] Allergy Unknown Unknown Verified 10/29/19 00:52 Sulfa (Sulfonamide Allergy Unknown Unknown Verified 10/29/19 00:52 Antibiotics) Medications Home Medications Medication Instructions Recorded Confirmed Last Taken levothyroxine 75 mcg tablet 75 mcg PO DAILY #90 tab 01/20/19 10/29/19 Unknown simvastatin 40 mg tablet 40 mg PO QPM #90 tab 06/29/19 10/29/19 Unknown aspirin 81 mg tablet 81 mg PO DAILY #30 tab 07/23/19 10/29/19 Unknown buspirone 10 mg tablet 10 mg PO BID tab 07/23/19 10/29/19 Unknown calcium carbonate-vitamin D3 600 2 cap PO BID cap 07/23/19 10/29/19 Unknown mg calcium-200 unit capsule cholecalciferol (vitamin D3) 50 1,000 units PO BID tab 07/23/19 10/29/19 Unknown mcg (2,000 unit) tablet metformin 500 mg tablet,extended 1,000 mg PO BID #360 tab 09/26/19 10/29/19 Unk nown release 24 hr bupropion HCl 150 mg PO QAM 10/29/19 10/29/19 Unknown sertraline 50 mg PO DAILY 10/29/19 10/29/19 Unknown Active Medications Generic Name Dose Route Start Last Admin Trade Name Freq PRN Reason Stop Dose Admin Sodium Chloride 1,000 mls @ 100 mls/hr 10/29/19 06:30 10/29/19 06:33 Nss 1000ml IV 11/28/19 06:29 100 mls/hr .Q10H MADELINE Administration Insulin Aspart 0 units 10/29/19 07:30 10/29/19 08:42 Novolog Flexpen SC 11/28/19 07:29 Not Given Q6 MADELINE NPO Date Last Intake of Fluids: 10/29/19 Time Last Intake of Fluids: 04:00 Last Intake of Fluids Comment: ice chips in ER. 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) Proteinuria (Acute) Reactive airway disease (Acute) Type 2 diabetes mellitus (Acute) Vitamin D deficiency (Acute) Past Family History Family History Mother Osteoporosis Dementia Denies family history of Ovarian cancer Prostate cancer Myocardial infarction Breast cancer Colorectal cancer Past Surgical History Surgical History S/P bunionectomy S/P hysterectomy S/P right knee arthroscopy S/P wisdom tooth extraction Social History Smoking Status: Never smoker Hx Alcohol Use: No Hx Substance Use: No Physical Exam Vital Signs Last Vital Signs Temp 36.8 C 10/29/19 07:00 Pulse 71 10/29/19 07:00 Resp 18 10/29/19 07:00 BP 115/64 10/29/19 07:00 Pulse Ox 93 10/29/19 07:00 Testing Laboratory Results 10/29/19 06:57 10/29/19 06:57 Urine Color Yellow 10/29/19 00:00 Urine Appearance Turbid (Clear) A 10/29/19 00:00 Urine pH 8.5 (4.5-7.5) H 10/29/19 00:00 Ur Specific [place] 1.020 (1.000-1.030) 10/29/19 00:00 Urine Protein Negative (Negative) 10/29/19 00:00 Urine Glucose (UA) Negative (Negative) 10/29/19 00:00 Urine Ketones Negative (Negative) 10/29/19 00:00 Urine Nitrite Negative (Negative) 10/29/19 00:00 Ur Leukocyte Esterase Trace (Negative) H 10/29/19 00:00 Urine WBC (Auto) 1-5 /hpf (0-5) 10/29/19 00:00 Urine RBC (Auto) 0-4 /hpf (0-4) 10/29/19 00:00 U Hyaline Cast (Auto) 1-5 /lpf (0-5) 10/29/19 00:00 U Epithel Cells (Auto) 5-10 /lpf (0-5) H 10/29/19 00:00 Urine Bacteria (Auto) Negative (Negative) 10/29/19 00:00 10/29/19 10/29/19 11:53 08:15 POC Glucose 98 106 H Electrocardiogram Date: 10/29/19 Findings: + NSR @ (66) and + poor R wave progression Chest X-Ray Date: 10/29/19 Findings: + NAD
[2019-10-29] MEDS ORDERED: BACITRACIN OINT 15 GM TUBE ONE (12:03)
[2019-10-29] MEDS ORDERED: LIDOCAINE HCL 1% 20 ML VIAL ONE (12:03)
[2019-10-29] MEDS ORDERED: BUPIVACAINE 0.5 % 5 MG/1 ML MPF 30ML VIAL ONE (12:03)
[2019-10-29] MEDS ORDERED: MIDAZOLAM HCL 1 MG/ML 2ML VIAL ONE (12:05)
[2019-10-29] MEDS ORDERED: SCOPOLAMINE 1.5 MG TDSY ONE (12:11)
[2019-10-29] MEDS ORDERED: ATROPINE SULFATE 0.1 MG/ML 10ML SYR IV PRN (12:13)
[2019-10-29] MEDS ORDERED: PROMETHAZINE HCL 6.25 MG in SODIUM CHLORIDE 0.9% 50 ML IV PRN (12:13)
[2019-10-29] MEDS ORDERED: HYDROmorphone INJ 1 MG/ML SYRINGE IV PRN (12:13)
[2019-10-29] MEDS ORDERED: KETOROLAC 30 MG/ML VIAL IV PRN (12:13)
[2019-10-29] MEDS: CALCIUM 600MG + VIT D 400 IU TAB PO SCH ×2 (12:25→20:22)
[2019-10-29] MEDS: CHOLECALCIFEROL 1,000 UNITS 25 MCG TAB PO SCH ×2 (12:25→20:21)
[2019-10-29] MEDS ORDERED: METOCLOPRAMIDE HCL INJ 5 MG/ML 2 ML VIAL ONE (13:30)
--- NOTE | 2019-10-29 13:43 | Post Operative Brief Note ---
Immediate Post Op Note v1 Date of Surgery October 29, 2019 Pre & Post Diagnosis Operation Date: 10/29/19 12:30 Pre-Op Diagnosis: acute cholecystitis, cholelithiasis Post-Op Diagnosis: acute cholecystitis, cholelithiasis I identified the patient and participated in the time-out.: Yes Procedure Operation Date: 10/29/19 12:30 Actual Procedures p Laparoscopic Cholecystectomy(Not Applicable) - Margoth Yu MD Surgeon Margoth Yu MD Top Tile Decorator surgical asst Estimated Blood Loss 10 Findings Consistent with Post-Op Diagnosis Fluids 1300ml Specimens gallbladder Anesthesia Type General Complications none Disposition Accompanied Patient To Recovery: Yes Disposition: Recovery Room Overlapping Procedure I was immediately available: during the entire case.
[2019-10-29] MEDS ORDERED: CLINDAMYCIN PHOS 300 MG/2 ML VIAL ONE (14:33)
--- NOTE | 2019-10-29 14:45 | Anesthesiology Progress Note ---
Date of Service October 29, 2019 Anesthesia Post Procedure Vital Signs Vital Signs: Temp Pulse Pulse Pulse Resp BP BP 10/29/19 14:35 36.6 C 65 16 120/63 10/29/19 14:25 67 20 109/63 10/29/19 14:15 65 17 117/54 L 10/29/19 14:05 36.5 C 66 16 127/61 10/29/19 07:00 36.8 C 71 18 115/64 10/29/19 06:07 36.4 C L 16 127/77 10/29/19 05:50 70 18 115/66 10/29/19 05:00 75 17 131/68 10/29/19 04:00 76 17 122/64 10/29/19 03:00 73 17 114/63 10/29/19 02:51 70 14 116/57 L 10/29/19 01:00 74 19 122/72 10/28/19 23:49 36.7 C 73 18 152/88 H Pulse Ox 10/29/19 14:35 96 10/29/19 14:25 93 10/29/19 14:15 93 10/29/19 14:05 95 10/29/19 07:00 93 10/29/19 06:07 95 10/29/19 05:50 94 10/29/19 05:00 10/29/19 04:00 95 10/29/19 03:00 92 10/29/19 02:51 95 10/29/19 01:00 95 10/28/19 23:49 95 Pain Intensity Head: Pain Intensity: 5 Transfer of Care Handoff Completed per policy Notes Mental Status: alert / awake / arousable Patient Amnestic to Procedure: Yes Nausea / Vomiting: adequately controlled Pain: adequately controlled Airway Patency, RR, SpO2: stable & adequate BP & HR: stable & adequate Hydration State: stable & adequate Anesthetic Complications: no major complications apparent
[2019-10-29] MEDS: BuPROPion XL 150 MG TABCR PO SCH (15:16)
[2019-10-29] MEDS: SERTRALINE HCL 50 MG TABLET PO SCH (15:16)
[2019-10-29] MEDS: PIPERACILLIN/TAZOBACTAM 3.375 GM in DEXTROSE 5% 100 ML IV SCH ×2 (15:17→20:18)
[2019-10-29] MEDS ORDERED: Nursing to Pharmacy Communication ONE (15:18)
--- NOTE | 2019-10-29 16:18 | Hospitalist Progress Note ---
Date of Service October 29, 2019 Assessment & Plan (1) Cholelithiases: Ms. Ramirez is a 64 yo F with PMH GERD, Depression, HLD, Hypothyroidism, DM2 presents to [facility] with complaints of RUQ abd pain found to have elevated LFTs and GB stones and sludge on U/S; no s/p lap cholecystectomy Acute Cholecystitis with Cholelithiases: - RUQ U/S from 10/27: Liver is echogenic and mildly enlarged suggesting diffuse fatty infiltration. There is GB stones and sludge. There is no GB wall thickening. Common duct is 7mm which is distended. There is no intraductal filling defect - Surg consulted: performed laproscopic cholecystectomy on 10/28 - Pain control with Dilaudid 0.5 mg q4h - PRN Zofran for nausea Depression/Anxiety: - continue home Buproprion 150, Buspirone 10 , sertraline 50 HLD: - continue simvastatin Hypothyroidism: - continue levothyroxine 75 mcg - TSH 4.56 DM2: - hold home metformin - started on SSI - pharmacy glycemic consult appreciated Diet: Full liquid DVT Prophylaxis: SCDs Code Status: Full code Admission and Anticipated Discharge Date Admission Date: October 29, 2019 Supervising Physician Co-Signing Physician Notes Resident Physician Supervision Note: I independently interviewed and examined the patient and verified the augustin history and physical, reviewed labs and image studies, discussed the case with the resident Dr. Mccarthy and agree with the findings and care plan. Subjective Patient has improved pain this AM, with maintained episodic nausea but no vomiting. Early this AM she felt like she had more of a headache, that she describes as being consistent with her usual headaches when she hasn't eaten, no light or sound sensitivity. No changes in vision, no feelings of weakness. Review of Systems Review of Systems: All systems reviewed & are unremarkable except as noted in Subjective Physical Exam Constitutional: WD/WN, vitals as above Eyes: PERRL, conjunctivae normal, anicteric sclerae Respiratory: normal respiratory effort, lungs clear to auscultation Cardiovascular: Rate/Rhythm: regular rhythm Heart Sounds: normal S1 and normal S2; no gallop, no murmur and no cardiac rub Extremities: no edema Gastrointestinal (Abdomen): Inspection/Auscultation: normal bowel sounds; abdomen not distended Percussion/Palpation: + abdomen tender (RUQ) and abdomen soft; no guarding and no hepatosplenomegaly Musculoskeletal: no cyanosis or clubbing, extremities motor strength 5/5 Neurologic: no focal motor deficits Results & Data ([facility]) Vital Signs (Past 12 Hours) Vital Signs Temp Pulse Pulse Pulse Resp BP BP 10/29/19 16:02 36.5 C 67 16 129/75 10/29/19 15:24 36.2 C L 70 16 131/62 10/29/19 14:55 36.5 C 73 16 124/72 10/29/19 14:35 36.6 C 65 16 120/63 10/29/19 14:25 67 20 109/63 10/29/19 14:15 65 17 117/54 L 10/29/19 14:05 36.5 C 66 16 127/61 10/29/19 07:00 36.8 C 71 18 115/64 10/29/19 06:07 36.4 C L 16 127/77 10/29/19 05:50 70 18 115/66 10/29/19 05:00 75 17 131/68 Pulse Ox 10/29/19 16:02 93 10/29/19 15:24 95 10/29/19 14:55 97 10/29/19 14:35 96 10/29/19 14:25 93 10/29/19 14:15 93 10/29/19 14:05 95 10/29/19 07:00 93 10/29/19 06:07 95 10/29/19 05:50 94 10/29/19 05:00 Laboratory Results 10/29/19 10/29/19 10/29/19 Range/Units 14:13 11:53 08:15 WBC (4.8-10.8) K/uL RBC (4.2-5.4) M/uL Hgb (12.0-16.0) g/dL Hct (37-47) % MCV (80-100) fL MCH (25-34) pg MCHC (32-36) g/dL RDW Std Deviation (36.4-46.3) fL RDW Coeff of Liza (11.5-14.5) % Plt Count (130-400) K/uL MPV (7.4-10.4) fL Immature Gran % (Auto) % Neut % (Auto) % Lymph % (Auto) % [place] % (Auto) % Eos % (Auto) % Baso % (Auto) % Immature Gran # (Auto) (0.00-0.02) K/uL Neut # (Auto) (1.4-6.5) K/uL Lymph # (Auto) (1.2-3.4) K/uL [place] # (Auto) (0.11-0.59) K/uL Eos # (Auto) (0-0.5) K/uL Baso # (Auto) (0-0.2) K/uL Sodium (136-145) mmol/L Potassium (3.5-5.1) mmol/L Chloride (98-107) mmol/L Carbon Dioxide (21-32) mmol/L Anion Gap (3-11) BUN (7-18) mg/dl Creatinine (0.6-1.2) mg/dl Est Cr Clr Drug Dosing ml/min Est GFR ( Amer) Est GFR (Non-Af Amer) BUN/Creatinine Ratio (10-20) Glucose (70-99) mg/dl POC Glucose 125 H 98 106 H (70-99) mg/dl Calcium (8.5-10.1) mg/dl Total Bilirubin (0.2-1) mg/dl AST (15-37) U/L ALT (12-78) U/L Alkaline Phosphatase (45-117) U/L Troponin I (0-0.045) ng/ml Total Protein (6.4-8.2) gm/dl Albumin (3.4-5.0) gm/dl Globulin (2.5-4.0) gm/dl Albumin/Globulin Ratio (0.9-2) Lipase (73-393) U/L TSH (0.300-4.500) uIu/ml Urine Color Urine Appearance (Clear) Urine pH (4.5-7.5) Ur Specific [place] (1.000-1.030) Urine Protein (Negative) Urine Glucose (UA) (Negative) Urine Ketones (Negative) Urine Blood (Negative) Urine Nitrite (Negative) Urine Bilirubin (Negative) Urine Urobilinogen (Negative) Ur Leukocyte Esterase (Negative) Urine WBC (Auto) (0-5) /hpf Urine RBC (Auto) (0-4) /hpf U Hyaline Cast (Auto) (0-5) /lpf U Epithel Cells (Auto) (0-5) /lpf Urine Bacteria (Auto) (Negative) 10/29/19 10/29/19 10/29/19 Range/Units 06:57 06:57 00:05 WBC 5.84 (4.8-10.8) K/uL RBC 3.56 L (4.2-5.4) M/uL Hgb 10.9 L (12.0-16.0) g/dL Hct 34.1 L (37-47) % MCV 95.8 (80-100) fL MCH 30.6 (25-34) pg MCHC 32.0 (32-36) g/dL RDW Std Deviation 46.6 H (36.4-46.3) fL RDW Coeff of Liza 13.4 (11.5-14.5) % Plt Count 187 (130-400) K/uL MPV 9.9 (7.4-10.4) fL Immature Gran % (Auto) 0.2 % Neut % (Auto) 60.1 % Lymph % (Auto) 30.7 % [place] % (Auto) 7.2 % Eos % (Auto) 1.5 % Baso % (Auto) 0.3 % Immature Gran # (Auto) 0.01 (0.00-0.02) K/uL Neut # (Auto) 3.51 (1.4-6.5) K/uL Lymph # (Auto) 1.79 (1.2-3.4) K/uL [place] # (Auto) 0.42 (0.11-0.59) K/uL Eos # (Auto) 0.09 (0-0.5) K/uL Baso # (Auto) 0.02 (0-0.2) K/uL Sodium 140 140 (136-145) mmol/L Potassium 4.2 4.0 (3.5-5.1) mmol/L Chloride 107 103 (98-107) mmol/L Carbon Dioxide 27 31 (21-32) mmol/L Anion Gap 6.0 6.0 (3-11) BUN 20 H 22 H (7-18) mg/dl Creatinine 0.90 1.05 (0.6-1.2) mg/dl Est Cr Clr Drug Dosing 74.3 64.7 ml/min Est GFR ( Amer) 77.8 64.5 Est GFR (Non-Af Amer) 67.1 55.7 BUN/Creatinine Ratio 22.7 H 21.1 H (10-20) Glucose 126 H 129 H (70-99) mg/dl POC Glucose (70-99) mg/dl Calcium 8.2 L 9.5 (8.5-10.1) mg/dl Total Bilirubin 0.9 0.5 (0.2-1) mg/dl AST 658 H 231 H (15-37) U/L ALT 286 H 94 H (12-78) U/L Alkaline Phosphatase 132 H 143 H (45-117) U/L Troponin I < 0.015 (0-0.045) ng/ml Total Protein 6.0 L D 7.8 (6.4-8.2) gm/dl Albumin 3.0 L 4.0 (3.4-5.0) gm/dl Globulin 3.0 3.8 (2.5-4.0) gm/dl Albumin/Globulin Ratio 1.0 1.1 (0.9-2) Lipase 188 (73-393) U/L TSH 4.560 H (0.300-4.500) uIu/ml Urine Color Urine Appearance (Clear) Urine pH (4.5-7.5) Ur Specific [place] (1.000-1.030) Urine Protein (Negative) Urine Glucose (UA) (Negative) Urine Ketones (Negative) Urine Blood (Negative) Urine Nitrite (Negative) Urine Bilirubin (Negative) Urine Urobilinogen (Negative) Ur Leukocyte Esterase (Negative) Urine WBC (Auto) (0-5) /hpf Urine RBC (Auto) (0-4) /hpf U Hyaline Cast (Auto) (0-5) /lpf U Epithel Cells (Auto) (0-5) /lpf Urine Bacteria (Auto) (Negative) 10/29/19 10/29/19 Range/Units 00:05 00:00 WBC 9.08 (4.8-10.8) K/uL RBC 4.24 (4.2-5.4) M/uL Hgb 13.1 (12.0-16.0) g/dL Hct 40.2 (37-47) % MCV 94.8 (80-100) fL MCH 30.9 (25-34) pg MCHC 32.6 (32-36) g/dL RDW Std Deviation 45.6 (36.4-46.3) fL RDW Coeff of Liza 13.3 (11.5-14.5) % Plt Count 256 (130-400) K/uL MPV 10.1 (7.4-10.4) fL Immature Gran % (Auto) 0.3 % Neut % (Auto) 64.4 % Lymph % (Auto) 27.8 % [place] % (Auto) 5.4 % Eos % (Auto) 1.8 % Baso % (Auto) 0.3 % Immature Gran # (Auto) 0.03 H (0.00-0.02) K/uL Neut # (Auto) 5.85 (1.4-6.5) K/uL Lymph # (Auto) 2.52 (1.2-3.4) K/uL [place] # (Auto) 0.49 (0.11-0.59) K/uL Eos # (Auto) 0.16 (0-0.5) K/uL Baso # (Auto) 0.03 (0-0.2) K/uL Sodium (136-145) mmol/L Potassium (3.5-5.1) mmol/L Chloride (98-107) mmol/L Carbon Dioxide (21-32) mmol/L Anion Gap (3-11) BUN (7-18) mg/dl Creatinine (0.6-1.2) mg/dl Est Cr Clr Drug Dosing ml/min Est GFR ( Amer) Est GFR (Non-Af Amer) BUN/Creatinine Ratio (10-20) Glucose (70-99) mg/dl POC Glucose (70-99) mg/dl Calcium (8.5-10.1) mg/dl Total Bilirubin (0.2-1) mg/dl AST (15-37) U/L ALT (12-78) U/L Alkaline Phosphatase (45-117) U/L Troponin I (0-0.045) ng/ml Total Protein (6.4-8.2) gm/dl Albumin (3.4-5.0) gm/dl Globulin (2.5-4.0) gm/dl Albumin/Globulin Ratio (0.9-2) Lipase (73-393) U/L TSH (0.300-4.500) uIu/ml Urine Color Yellow Urine Appearance Turbid A (Clear) Urine pH 8.5 H (4.5-7.5) Ur Specific [place] 1.020 (1.000-1.030) Urine Protein Negative (Negative) Urine Glucose (UA) Negative (Negative) Urine Ketones Negative (Negative) Urine Blood Negative (Negative) Urine Nitrite Negative (Negative) Urine Bilirubin Negative (Negative) Urine Urobilinogen Negative (Negative) Ur Leukocyte Esterase Trace H (Negative) Urine WBC (Auto) 1-5 (0-5) /hpf Urine RBC (Auto) 0-4 (0-4) /hpf U Hyaline Cast (Auto) 1-5 (0-5) /lpf U Epithel Cells (Auto) 5-10 H (0-5) /lpf Urine Bacteria (Auto) Negative (Negative) Medications Administered Current Inpatient Medications Al Hydrox/Mg Hydrox/Simethicone (Maalox) 30 ml PO Q6H PRN PRN Reason: Dyspepsia Stop: 11/28/19 06:04 Aspirin (Ecotrin Ectab) 81 mg PO DAILY [facility] Stop: 11/29/19 08:59 Bupropion HCl (Wellbutrin-Xl) 150 mg PO QAM [facility] Stop: 11/28/19 08:59 Last Admin: 10/29/19 15:16 Dose: Not Given Documented by: Buspirone HCl (Buspar) 10 mg PO BID [facility] Stop: 11/28/19 08:59 Last Admin: 10/29/19 12:25 Dose: Not Given Documented by: Dextrose (Dextrose 50%) 25 - 50 ml IV UD PRN; Protocol PRN Reason: Hypoglycemia Protocol Stop: 11/28/19 06:04 Glucagon (Glucagen) 1 mg SQ UD PRN; Protocol PRN Reason: Hypoglycemia Protocol Stop: 11/28/19 06:04 Glucose (Dex4 Glucose) 4 - 8 tabs PO UD PRN; Protocol PRN Reason: Hypoglycemia Protocol Stop: 11/28/19 06:04 Glucose (Glucose 40%) 15 - 30 gm PO UD PRN; Protocol PRN Reason: Hypoglycemia Protocol Stop: 11/28/19 06:04 Hydromorphone HCl (Dilaudid) 0.5 mg IV Q4H PRN PRN Reason: Pain Stop: 11/12/19 06:04 Sodium Chloride (Nss 1000ml) 1,000 mls @ 100 mls/hr IV .Q10H MADELINE Stop: 11/28/19 06:29 Last Admin: 10/29/19 16:01 Dose: 100 mls/hr Documented by: Piperacillin Sod/Tazobactam (Sod 3.375 gm/ Dextrose) 115 mls @ 28.75 mls/hr IV Q8H MADELINE; Protocol Stop: 11/08/19 11:59 Last Admin: 10/29/19 15:17 Dose: Not Given Documented by: Insulin Aspart (Novolog Flexpen) 0 units SC ACHS MADELINE Stop: 11/28/19 16:29 Levothyroxine Sodium (Synthroid) 75 mcg PO DAILYBB MADELINE Stop: 11/29/19 06:29 Miscellaneous (Carbohydrates For Hypoglycemia) 15 - 30 gm PO UD PRN PRN Reason: Hypoglycemia Protocol Stop: 11/28/19 06:04 Miscellaneous Information (Consult) 1 ea N/A UD PRN PRN Reason: Consult Stop: 11/28/19 06:04 Miscellaneous Information (Consult Glycemic Management Pharmacy) 1 ea N/A UD PRN PRN Reason: Consult Stop: 11/28/19 06:30 Multivitamins/Minerals (Caltrate Plus) 1 tab PO BID MADELINE Stop: 11/28/19 08:59 Last Admin: 10/29/19 12:25 Dose: Not Given Documented by: Ondansetron HCl (Zofran) 4 mg IV Q6H PRN PRN Reason: Nausea Stop: 11/28/19 06:04 Sertraline HCl (Zoloft) 50 mg PO DAILY MADELINE Stop: 11/28/19 08:59 Last Admin: 10/29/19 15:16 Dose: Not Given Documented by: Simvastatin (Zocor) 40 mg PO QPM MADELINE Stop: 11/28/19 20:59 Vitamin D (Vitamin D3) 1,000 units PO BID MADELINE Stop: 11/28/19 08:59 Last Admin: 10/29/19 12:25 Dose: Not Given Documented by: Resident Activity Tracking Resident Involvement: Resident Care Provided Care Provided: Adult Hospital Medicine
[2019-10-29] MEDS ORDERED: ACETAMINOPHEN 500 MG TAB PO PRN (20:10)
[2019-10-29] MEDS ORDERED: SIMVASTATIN 40 MG TAB PO SCH (21:00)
[2019-10-29] MEDS ORDERED: METFORMIN HCL ER 500 MG TABCR PO SCH (21:00)
--- NOTE | 2019-10-29 22:15 | Operative Report (OR) ---
DATE OF OPERATION: 10/29/2019 PREOPERATIVE DIAGNOSIS: Acute cholecystitis with cholelithiasis. POSTOPERATIVE DIAGNOSIS: Acute cholecystitis with cholelithiasis. OPERATION: Laparoscopic cholecystectomy. SURGEON: Margoth Yu MD. ANESTHESIA: General. ESTIMATED BLOOD LOSS: About 10 mL. FINDINGS: Acute cholecystitis, cholelithiasis. COMPLICATIONS: None. INDICATIONS FOR THE PROCEDURE: This is a 64-year-old female who was admitted to hospital for right upper quadrant pain. The patient had ultrasound diagnosis of acute cholecystitis with cholelithiasis. The patient required to do laparoscopic cholecystectomy, possible open, possible cholangiogram. I did talk to the patient about the benefits, risks, and alternate procedure. I indicated the risks may include but not limited such as bleeding, infection, injury to common bile duct, may need ERCP, myocardial infarction, even . The patient understands. She signed informed consent and I answered all questions. DETAILS OF PROCEDURE: We brought in the patient to the OR, put the patient in the supine position. The patient received SCDs on bilateral legs to prevent DVT. Also, patient received 600 mg clindamycin IV for prophylactic antibiotic. The patient received general anesthesia without difficulties. Abdomen was prepped and draped in routine sterile fashion. After time-out, I injected local anesthesia by using 1% lidocaine mixed with 0.5% Marcaine just above umbilicus. I then made a small incision just above the umbilicus, opened fascia and opened peritoneum under direct vision, put a Cuauhtemoc trocar in, connected to CO2 to create pneumoperitoneum. Flow rate is 6 liter per minute. Pressure not more than 14 mmHg. Once we got a nice pneumoperitoneum, we put a camera in, looked around the abdomen, shows normal finding on the liver. However, the gallbladder showed significant inflammation on the gallbladder wall, confirmed diagnosis of acute cholecystitis. Then, we put another two 5 mm trocar on the right upper quadrant, one 11 trocar on the epigastric area. Once all trocars in, we put a grasper to hold the base of gallbladder and put direction to the diaphragm, another grasper to hold the pouch of gallbladder, put the latter to expunge triangle of Calot. Cystic duct was identified and mobilized. I put two 10 mm metal clips on the proximal cystic duct and one on the distal cystic duct. I then used the scissors for transection of cystic duct. Rechecked, no bile leak. The cystic artery was identified and mobilized. I put two 10 mm metal clips on the proximal cystic artery, one on the distal cystic artery. I then used scissors for transection of cystic artery. Rechecked, no active bleeding. Then we used the Bovie to take down gallbladder from the liver bed. Rechecked, no active bleeding, no bile leak from liver bed. Then we removed gallbladder through the catch bag, then we reinserted Cuauhtemoc trocar in and connected to CO2 to create pneumoperitoneum, again looked around the abdomen. No active bleeding from liver bed or bile leak. Then we removed all trocar under direct vision. No active bleeding from the trocar site. Pneumoperitoneum was released. Closed the umbilical incision, fascial layer, by using #1 Vicryl [id number] x2, closed subcutaneous layer by using 2-0 Vicryl interrupted layer, closed skin by using 4-0 Vicryl continuous running, closed the epigastric area incision, fascial layer, by using #1 Vicryl [id number] x2, closed subcutaneous layer by using 2-0 Vicryl interruptedly, closed skin by using 4-0 Vicryl interruptedly, closed another two 5 mm trocar sites skin only by using 4-0 Vicryl. Then we put the dressing on. The patient tolerated the procedure well. All instrument, needle and sponge count were correct x2 at the end of the case. The patient transferred to recovery room in stable condition. The specimen sent to pathology. After procedure, I did talk to the patient's about the OR finding and procedure we did, she understands. I attest to the content of the Intraoperative Record and any orders documented therein. Any exception s are noted below.
[2019-10-30] MEDS: SODIUM CHLORIDE 0.9% 1000ML 1,000 ML IV SCH (02:02)
[2019-10-30] MEDS: PIPERACILLIN/TAZOBACTAM 3.375 GM in DEXTROSE 5% 100 ML IV SCH (03:29)
[2019-10-30] MEDS ORDERED: LEVOTHYROXINE SODIUM 75 MCG TABLET PO SCH (06:30)
[2019-10-30 06:31] LABS: Creatinine Clr Calc Pharmacy 64.3 ml/min; Est GFR (African American) 65.3; Est GFR (Non-African American) 56.3
[2019-10-30 07:44] LABS: Basophils # (auto) 0.01 K/uL (0-0.2); Basophils % (auto) 0.1 %; Eosinophils # (auto) 0.11 K/uL (0-0.5); Eosinophils % (auto) 1.5 %; Hematocrit (blood only) 37.5 % (37-47); Immature Granulocytes # (auto) 0.02 K/uL (0.00-0.02); Immature Granulocytes % (auto) 0.3 %; Lymphocytes # (auto) 1.76 K/uL (1.2-3.4); Lymphocytes % (auto) 23.6 %; Mean Corpuscular Hemoglobin 31.2 pg (25-34); Mean Corpuscular Volume 97.4 fL (80-100); Mean Platelet Volume 10.3 fL (7.4-10.4); Monocytes # (auto) 0.49 K/uL (0.11-0.59); Monocytes % (auto) 6.6 %; Neutrophils # (auto) 5.06 K/uL (1.4-6.5); Neutrophils % (auto) 67.9 %; Platelet Count 213 K/uL (130-400); RDW Coefficient of Variation 13.7 % (11.5-14.5); RDW Standard Deviation 48.9 fL (36.4-46.3); Red Blood Count 3.85 M/uL (4.2-5.4); White Blood Count 7.45 K/uL (4.8-10.8)
[2019-10-30 07:55] LABS: BUN Creatinine Ratio 10.6 (10-20); Calcium 9.3 mg/dl (8.5-10.1); Creatinine Clr Calc Pharmacy 67.5 ml/min; Est GFR (African American) 69.3; Est GFR (Non-African American) 59.8; Potassium 4.4 mmol/L (3.5-5.1)
[2019-10-30] MEDS ORDERED: ASPIRIN 81 MG ECTAB PO SCH (09:00)
[2019-10-30] MEDS: CALCIUM 600MG + VIT D 400 IU TAB PO SCH (09:21)
[2019-10-30] MEDS: INSULIN ASPART 100 UNITS/ML 3 ML PEN SC SCH ×2 (09:21→12:59)
[2019-10-30] MEDS: SERTRALINE HCL 50 MG TABLET PO SCH (09:21)
[2019-10-30] MEDS: CHOLECALCIFEROL 1,000 UNITS 25 MCG TAB PO SCH (09:21)
[2019-10-30] MEDS: BuPROPion XL 150 MG TABCR PO SCH (09:21)
--- NOTE | 2019-10-30 10:34 | Surgery Progress Note ---
Date of Service S/P laparoscopic cholecystectomy POD 1 pt is doing fine, no abdominal pain, tolerated clear diet, no nausea, no vomiting, October 30, 2019 Assessment & Plan (1) Cholelithiases: pt is a 64 year-old female who was admitted to hospital for acute RUQ pain, IMP: acute cholecystitis, cholelithiasis, Plan, I recommend to do laparoscopic cholecystectomy, possible open or cholangiogram, D/W benefits, risks and alternatives of the surgery, the risks - infection, bleeding, injury CBD, may need ERCP, LA, , pt understood, she and her agree with the surgery, I answered all questions, 10:32AM POD 1 doing fine, pt can be discharged home today, keep the dressing on for 4 days, she can take a shower on 11/02/2019, no heavy lifting > 25 LBS for 4 weeks, F/U me in 1-2 weeks, Thanks, (2) Acute cholecystitis: Subjective Patient has improved pain this AM, with maintained episodic nausea but no vomiting. Early this AM she felt like she had more of a headache, that she describes as being consistent with her usual headaches when she hasn't eaten, no light or sound sensitivity. No changes in vision, no feelings of weakness. Physical Exam Constitutional: WD/WN, vitals as above well developed and well nourished Eyes: PERRL, conjunctivae normal, anicteric sclerae ENMT: external ear and nose normal, oropharynx normal Neck: trachea midline, no thyromegaly Respiratory: normal respiratory effort, lungs clear to auscultation normal respiratory effort Cardiovascular: RRR, no murmur, no edema Rate/Rhythm: regular rate and regular rhythm Heart Sounds: normal S1 and normal S2 Gastrointestinal (Abdomen): normal bowel sounds, soft, nontender, no hepatosplenomegaly Percussion/Palpation: + abdomen tender and abdomen soft incisions intact, no distend, Musculoskeletal: no cyanosis or clubbing, extremities motor strength 5/5 Skin: no rashes, warm and dry Neurologic: patellar DTR's 2+ bilat, sensation intact Psychiatric: Orientation: alert and oriented x 3 Results & Data Vital Signs (Past 12 Hours) Vital Signs Temp Pulse Resp BP Pulse Ox 10/30/19 07:55 37.1 C 75 18 127/69 96 10/30/19 03: 37.3 C 73 16 119/70 93 10/29/19 23:14 36.8 C 77 16 123/62 91 Laboratory Results Abnormal lab results 10/29/19 10/29/19 10/29/19 Range/Units 14:13 17:21 20:25 RBC (4.2-5.4) M/uL RDW Std Deviation (36.4-46.3) fL Chloride (98-107) mmol/L Glucose (70-99) mg/dl POC Glucose 125 H 121 H 124 H (70-99) mg/dl 10/30/19 10/30/19 10/30/19 Range/Units 05:12 05:12 09:27 RBC 3.85 L (4.2-5.4) M/uL RDW Std Deviation 48.9 H (36.4-46.3) fL Chloride 108 H (98-107) mmol/L Glucose 128 H (70-99) mg/dl POC Glucose 232 H (70-99) mg/dl
--- NOTE | 2019-10-30 11:37 | Discharge Summary ---
Date of Service October 30, 2019 Admission HPI Per Admitting Provider 64 yo F with PMH GERD, Depression, HLD, Hypothyroidism, DM2 presents to [facility] with complaints of RUQ abd pain. Pain started suddenly around 10 PM last night. Pt had pizza and a salad for dinner around 630PM. Pain described as a constant sharp pain, 10/10. Radiates across into epigastric region. No known alleviating or exacerbating factors. No previous such occurrence like this before. Pain initially lasted for around 40 min, then subsided, then came back around 1 hr later even worse. Associated nausea, but otherwise denies vomiting, diarrhea, sick contacts, ingestion of suspicious foods, fever, chills, CP, SOB, urinary sxs. Pt with no other acute concerns or complaints. Labs: AST 231, ALT 94, Alk Phos 143. T.bili normal at 0.5 RUQ U/S (STATRad): Liver is echogenic and mildly enlarged suggesting diffuse fatty infiltration. There is GB stones and sludge. There is no GB wall thickening. Common duct is 7mm which is distended. There is no intraductal filling defect. Impression: positive for cholelithiasis. Official read pending. ER Course: Dilaudid 0.5mg IV, IV Levaquin, IV Zofran, NSS Family Hx: Mother- Dementia, osteoporosis Social: Denies Tobacco/Drug Use. Very Rare Alcohol use/year Surgical Hx: bunionectomy, hysterectomy, right knee arthroscopy Principal Diagnosis Cholelithiasis Discharge Exam Constitutional WD/WN, vitals as above Eyes PERRL, conjunctivae normal, anicteric sclerae Respiratory normal respiratory effort, lungs clear to auscultation Cardiovascular Rate/Rhythm: regular rhythm Heart Sounds: normal S1 and normal S2; no gallop, no murmur and no cardiac rub Extremities: no edema Gastrointestinal (Abdomen) Inspection/Auscultation: normal bowel sounds; abdomen not distended Percussion/Palpation: abdomen soft; abdomen nontender, no guarding and no hepatosplenomegaly Discharge Data Allergies Allergy/AdvReac Type Severity Reaction Status Date / Time amoxicillin [From Amoxil] Allergy Severe Hives Unverified 10/29/19 00:52 Bactrim Allergy Mild ITCHING/HIV Verified 08/15/14 06:57 ES sulfamethoxazole Allergy Mild ITCHING/HIV Verified 10/29/19 00:52 ES trimethoprim Allergy Mild ITCHING/HIV Verified 10/29/19 00:52 ES guaifenesin [From Entex LQ] Allergy Unknown Unknown Verified 10/29/19 00:52 Penicillins Allergy Unknown Unknown Verified 10/29/19 00:52 phenylephrine [From Entex LQ] Allergy Unknown Unknown Verified 10/29/19 00:52 Sulfa (Sulfonamide Allergy Unknown Unknown Verified 10/29/19 00:52 Antibiotics) Consultations 10/29/19 03:42 ED Decision to Admit Stat 10/29/19 06:05 Consult General Surgery Routine Procedures Performed Operation Date: 10/29/19 12:30 Actual Procedures p Laparoscopic Cholecystectomy(Not Applicable) - Margoth Yu MD Ordered Studies 10/29/19 00:03 gallbladder Urgent Hospital Course (1) Cholelithiases: Ms. Ramirez is a 64 yo F with PMH GERD, Depression, HLD, Hypothyroidism, DM2 presents to [facility] with complaints of RUQ abd pain found to have elevated LFTs and GB stones and sludge on U/S; no s/p lap cholecystectomy Acute cholcystitis with Cholelithiases: - RUQ U/S from 10/27: Liver is echogenic and mildly enlarged suggesting diffuse fatty infiltration. There is GB stones and sludge. There is no GB wall thickening. Common duct is 7mm which is distended. There is no intraductal filling defect - Surg consulted: performed laproscopic cholecystectomy on 10/28, to have follow- up with Dr. Yu in 1-2 weeks [phone] - since has tolerated all oral intake without nausea or vomiting Depression/Anxiety: - continue home Buproprion 150, Buspirone 10 , sertraline 50 HLD: - continue simvastatin Hypothyroidism: - continue levothyroxine 75 mcg - TSH 4.56 DM2: - restart home regimen Total Time Total Time Spent Total Time Spent (In Minutes): 30 Discharge Plan Discharge Items Patient Disposition: Home - Self-Care Reason For Visit: RUQ PAIN Discharge Diagnosis: Cholelithiasis Activity: Per Instructions section Non-emergency contact: Primary Care Provider and Surgeon Call non-emergency contact if: you have any medication questions, your symptoms worsen and you have a fever Follow-up/Referrals: Hannah Sal MD [Primary Care Provider] - Diet: Regular Addtl Attending Provider Instructions: You were admitted for new abdominal pain, that had been present over the last couple days and was worsened by food. During this evaluation, you had an ultrasound of your gallbladder that demonstrated gall stones. After discussions with the surgeon, you had your gallbladder removed and since that time have had improvement in your abdominal pain, that is no longer worsened by meals, and you have not had any continued episodes of nausea or vomiting. Follow-up with Dr. Yu in 1-2 weeks, Now that you are being discharged, we are restarting your home medications without change. Pending Studies at Discharge: No Stand-Alone Forms: My [facility], Smoking Cessation Medications and DC Order Prescriptions: New (DME) lancets [OneTouch Delica Lancets] 30 gauge misc See Rx Instructions .ROUTE .MEDSUPPLY Qty: 25 RF: 0 (DME) blood-glucose meter [OneTouch Ultra2 Meter] Misc See Rx Instructions .ROUTE .MEDSUPPLY Qty: 1 RF: 0 (DME) blood sugar diagnostic [OneTouch Ultra Blue Test Strip] Strip See Rx Instructions .ROUTE .MEDSUPPLY Qty: 25 RF: 0 Continued simvastatin 40 mg tablet 40 mg PO QPM Qty: 90 RF: 3 metformin 500 mg tablet extended release 24 hr 1,000 mg PO BID Qty: 360 RF: 1 levothyroxine 75 mcg tablet 75 mcg PO DAILY Qty: 90 RF: 3 aspirin 81 mg tablet 81 mg PO DAILY Qty: 30 RF: 0 buspirone 10 mg tablet 10 mg PO BID RF: 0 calcium carbonate-vitamin D3 600 mg calcium- 200 unit capsule 2 cap PO BID RF: 0 cholecalciferol (vitamin D3) 2,000 unit tablet 1,000 units PO BID RF: 0 bupropion HCl 150 mg Tablet Extended Release 24 Hr 150 mg PO QAM RF: 0 sertraline 50 mg Tablet 50 mg PO DAILY RF: 0 Discharge Orders: Discharge Order (Routine); Ordered 10/30/19 Ordered By: Benjamin Mccarthy Admission Data Admit Date/Time: 10/29/19 05:19 Attending Provider: Argentina Francis Admit Provider: Sharif Baugh Primary Care Provider: Hannah Sal Other Providers: Faustino,Randa M ; Yu,Chunjie Other Interventions: Discharge Summary Assessment (RN) Last Done: 10/30/19 12:43 Supervising Physician Co-Signing Physician Notes Resident Physician Supervision Note: I independently interviewed and examined the patient and verified the augustin history and physical, reviewed labs and image studies, discussed the case with the resident Dr. Mccarthy and agree with the findings and care plan. Resident Activity Tracking Resident Involvement: Resident Care Provided Care Provided: Adult Hospital Medicine
[2019-10-31 06:12] LABS: Estimated Average Glucose 151 mg/dl; Hemoglobin A1C 6.9 % (4.5-5.6)
== END 2019-10-30 14:00 | disposition home or self-care (01) ==
LOC: ED 23:45 → 3E 23:45 → SUATTDRO 10-29 05:19 → 3E 10-29 05:50 → 3N 10-29 13:54